=== PATIENT | male | born 1980 | race Two or more races ===

== ENCOUNTER → 2022-01-07 08:01 | Outpatient (REF) | payer MEDICAID, SELFPAY ==
--- NOTE | 2022-01-07 08:08 | ECG_ITS ---
Hook-up date: 2022-01-07 08:35:00 Duration: 47:59:00 Test Indications: PALPITATIONS Medications: [id number] QRS complexes * Ventricular ectopics which represent % of total QRS comp. 5 Supraventricular ectopics which represent <1 % of total QRS comp. * Paced QRS complexs which represent % of total QRS comp. VENTRICULAR ECTOPY * Isolated * Bigeminal Cycles * Couplets * Runs * Beats in Runs * Beats LONGEST at * BPM at :: -- * Beats FASTEST at * BPM at :: -- SUPRAVENTRICULAR ECTOPY 5 Isolated 0 Couplets 0 Runs 0 Beats in Runs * Beats LONGEST at * BPM at :: -- * Beats FASTEST at * BPM at :: -- HEART RATES 69 MIN at 07:00:17 2022-01-08 92 AVG 138 MAX at 00:56:28 2022-01-08 LONGEST RR 0.8800 secs at 07:00:19 2022-01-08 S-T LEVELS Channel 1 - 128 mm at 08:35:00 2022-01-07 - 128 mm at 08:35:00 2022-01-07 Channel 2 - 128 mm at 08:35:00 2022-01-07 - 128 mm at 08:35:00 2022-01-07 Channel 3 - 128 mm at 02:75:41 -- - 128 mm at 02:75:41 Basic rhythm Normal sinus rhythm No long pause or profound bradycardia No dangerous dysrhythm periods Patient did not report any symptoms in the diary Referred By: Sean Roman Overread By: ANJELICA VALDEZ MD
--- NOTE | 2022-01-07 08:08 | CA_ITS ---
Transthoracic Echocardiogram Patient (Last, First, Middle): Ganesh Scott, Gender: Male Date of : 1980 Age: 41 Procedure Date: 01/07/2022 Procedure Type: Transthoracic Echocardiogram Location: OP Height: 180.34 cm Weight: 108.86 kg BSA: 2.28 m2 Heart Rate: bpm BP: 116 / 84 mmHg Special Education Assistant: COLT Referring MD: Sean Roman MD Symptoms: R00.2 PAL;PITATIONS Study Quality: Fair ECG Rhythm: Sinus Conclusions: - The left ventricular systolic function is normal. The calculated ejection fraction is 62% by biplane method. - No obvious valvular pathology seen on this study. Findings Left Ventricle Normal left ventricular cavity size. The left ventricular systolic function is normal. The calculated ejection fraction is 62% by biplane method. There is no evidence of regional wall motion abnormalities. Diastolic function is normal for age. There is mild septal asymmetric hypertrophy. Right Ventricle Normal right ventricular cavity size and systolic function. Atria Both atria are normal in size. Aortic Valve There is a normal trileaflet aortic valve. There is no aortic valve stenosis. There is no aortic valve regurgitation. Mitral Valve The mitral valve appears normal. There is trace mitral valve regurgitation. There is no mitral valve stenosis. Pulmonic Valve The pulmonic valve was not well visualized. Tricuspid Valve Normal tricuspid valve structure. There is trace tricuspid valve regurgitation. The pulmonary artery systolic pressure is normal. Great Vessels The aortic annulus, sinuses of valsalva, asc aorta, and aortic arch are normal in size. Venous The inferior vena cava was not well visualized. Pericardium/Pleural There is no evidence of pericardial effusion. Prior Study Comparison No prior study available for comparison. Recommendations, Care & Conclusions No obvious valvular pathology seen on this study. Measurements 2D Linear Measurements IVSd: 1.09 0.6-0.9/0.6-1.0 cm LVIDd: 5.37 3.9-5.3/4.2-5.9 cm LVIDd Index: 2.36 2.4-3.2/2.2-3.1 cm/m2 LVIDs: 3.67 2.0-3.6 cm LVPWd: 0.93 0.7-1.1 cm LA Diam: 3.50 2.7-3.8/3.0-4.0 cm LAIDs Index: 1.54 1.5-2.3 cm/m2 LV Mass: 259.19 67-162/88-224 g LV Mass Index: 113.68 43-95/49-115 g/m2 LVOT Diam: 2.20 3.0+(-)1.3 cm 2D Systolic Function EF 4C: 61.00 >55% EF 2C: 62.90 >55% EF BiP: 61.70 >55% Mitral Valve MV Pk E: 0.75 MV PK A: 0.67 MV Decel Time: 189.00 E/A: 1.10 E'Lateral: 9.68 E'Medial: 7.83 E/E' Med: 9.50 E/E' Lat: 7.70 PHT: 55.00 MVA PHT: 4.00 Decel Forrest: 3.96 Aortic Valve AoV Pk Reji: 1.28 AoV Mn Reji: 0.96 AoV VTI: 0.24 AoV Pk Grad: 7.00 Aov Mn Grad: 4.00 TIFFANY Cont.VTI: 3.03 LVOT LVOT Pk Reji: 1.13 LVOT Mn Reji: 0.74 LVOT VTI: 0.19 LVOT Pk Grad: 5.00 LVOT Mn Grad: 3.00 LVOT Diam: 2.20 LVOT Area: 3.80 Diastolic Function MV Pk E: 0.75 MV Pk A: 0.67 E/A: 1.10 E'Medial: 7.83 E/E' Med: 9.50 E' Laterial: 9.68 E/E' Lat: 7.70 Right Ventricle TAPSE (mm): 20.30 TVS' Reji: 9.68 Tricuspid Valve TR Pk Reji: 1.67 TR Pk Grad: 11.00 Great Vessels Aorta Sinus of Valsalva: 3.27 2.0-3.[address] Ridge: 2.51 1.7-3.4 cm Ao Asc: 3.10 2.1-3.4 cm Ao Arch: 2.90 Updated in Other Vendor System with Status of Final Anthony Pires MD electronically signed on 01/07/2022 10:35:47 AM with status of Final
== END ==
LOC: HO.CARD 08:01
PROVIDERS: Visit Provider Internal Medicine
DX: R00.2 Palpitations (principal)
CPT/HCPCS: 93225; 93226; 93306

== ENCOUNTER → 2022-01-17 15:00 | Outpatient (REF) | payer MEDICAID, SELFPAY | LOC: HO.SL 15:00 | PROVIDERS: PCP Family Medicine; Visit Provider Family Medicine | DX: G47.33 Obstructive sleep apnea (adult) (pediatric) (principal) | CPT/HCPCS: 95806 ==

== ENCOUNTER 2023-04-23 12:59 | Emergency (ER) | payer MEDICAID, SELFPAY ==
--- NOTE | ~2023-04-23 | XR_ITS ---
EXAMINATION: XR LUMBOSACRAL SPINE CLINICAL INFORMATION: Midline tenderness. COMPARISON: None available. TECHNIQUE: Three views of the lumbosacral spine. FINDINGS: L5-S1 is transitional with partial sacralization of L5, left greater than right. Associated chronic appearing deformity of the L5 vertebral body is seen. The remainder the vertebral bodies are intact. The intervertebral disc spaces are unremarkable. The soft tissues are unremarkable. 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 No overt acute abnormality.
--- NOTE | 2023-04-23 13:25 | ED.BACK ---
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 Patient denies any recent trauma, injury, heavy lifting, or falls. Denies taking any medications at to treat his current symptoms. Patient denies any fevers, chills, abdominal pain, nausea, vomiting, diarrhea, urinary incontinence or bowel incontinence. Denies saddle anethesia. No hx of back pain in the past. No other complaints or concerns at this time. MD elicited complaint: back pain Radiation: none Relieving factors: none Associated symptoms: denies other symptoms Related Data Previous Rx's Medication Instructions Recorded cyclobenzaprine 10 mg tablet 10 mg PO TID PRN muscle spasm #14 04/23/23 tabs ibuprofen 600 mg tablet 600 mg PO Q6H PRN pain #30 tabs 04/23/23 prednisone 20 mg tablet 40 mg PO DAILY 5 days #10 tabs 04/23/23 Allergies Allergy/AdvReac Type Severity Reaction Status Date / Time Penicillins [PCN] Allergy Anaphylaxis Verified 04/23/23 13:26 Review of Systems Review of Systems: Yes all other systems are reviewed and are negative COUNTS INCLUDE 234 BEDS AT THE [facility] Social History Social History (System 08/31/21 @ 14:33 by Kia Case) Alcohol intake: never Smoked in Last 30 Days: No Use of substances other than those prescribed or required for medical reasons: No Advance Directives: No Advance Directives Information Provided: No Physical Exam Vital Signs: Vital Signs: Last Vital Signs Temp 98 F 04/23/23 13:28 Pulse 77 04/23/23 17:12 Resp 16 04/23/23 17:12 BP 134/81 04/23/23 17:12 Pulse Ox 96 04/23/23 17:12 O2 Del Method Room Air 04/23/23 17:12 BMI result Body Mass Index 35.8 Const: Other: General: Awake, alert, and oriented X3. No acute distress. HEENT: Normal inspection CVS: Normal heart rate and rhythm. Pulses normal. Respiratory: No respiratory distress Skin: Warm, dry, no rashes noted to exposed skin. Normal skin color. Normal skin turgor. Extremities: Normal to inspection. MSK: Mild TTP to the lumbar midline spine and lumbar paraspinous muscles with spasms noted. Negative straight leg raise. Patellar reflexes 2+biaterally. Neuro: Oriented X 3. No motor deficit. No sensory deficit. Course Course Course Narrative: RME - 42 yo Prydeinig speaking male on Sublocade presents to the ER for evaluation of nontraumatic lower back pain for the 1 week. No relief flexeril, motrin and pain patches OTC. No red flag symptoms of LBP. Plan: Has some midline lumbar tenderness so will get x-ray, treat pain, and reassess Medications Administered Discontinued Medications Generic Name Dose Route Start Last Admin Trade Name Freq PRN Reason Stop Dose Admin Ketorolac Tromethamine 30 mg 04/23/23 16:35 04/23/23 16:52 Ketorolac Tromethamine 30 Mg/Ml Vial IM 04/23/23 16:36 30 mg ONCE ONE Administration Medical Decision Making Medical Decision Making [facility] Narrative: 42 y/o martiniquais speaking male presenting to the ER with complaints of atraumatic back pain x 1 week. No back pain red flags on history or physical. Presentation not consistent with fracture (no trauma), cauda equina (no bowel or urinary incontinence/retention, no saddle anesthesia, no distal weakness), pyelonephritis (afebrile, no CVAT, no urinary symptoms). 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 Discussed results with patient and mother with supervisor assembly department. Advised to f/u with PCP regarding results. Will treat with steroids, muscle relaxants and NSAIDs. Given return precautions. Differential Diagnosis Differential Diagnoses: The differential diagnosis associated with the presentation includes MSK spasm, strain, sciatica, disc hernination, cauda equina syndrome unlikely. Radiology Impression Discussion of test interpretation with radiology: I have reviewed the radiologist's reading. Radiologist Impression: [address] [address] XRay Report Signed Patient: Ganesh Scott MR#: [id number] : 1980 Acct:[id number] Age/Sex: 42 / M ADM Date: 04/23/23 Loc: HO.ED Attending Dr: Ordering Physician: Joelle Daley Date of Service: 04/23/23 Procedure(s): XR lumbar spine 2-3V Accession Number(s): [id number] cc: Joelle Daley~ EXAMINATION: XR LUMBOSACRAL SPINE CLINICAL INFORMATION: Midline tenderness. COMPARISON: None available. TECHNIQUE: Three views of the lumbosacral spine. FINDINGS: L5-S1 is transitional with partial sacralization of L5, left greater than right. Associated chronic appearing deformity of the L5 vertebral body is seen. The remainder the vertebral bodies are intact. The intervertebral disc spaces are unremarkable. The soft tissues are unremarkable. 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 No overt acute abnormality. ? Dictated By: Linus Dahl MD Signed By: <Electronically signed by Linus Dahl MD in OV> Discharge Plan Discharge Clinical Impression: Back pain, Degenerative disc disease at L5-S1 level Patient Disposition: Home, Self-Care Instructions: Acute Low Back Pain (ED), Back Pain (ED) Additional Instructions: Your x-rays today reveal a chronic appearing deformity at the L5 vertebrae body. please take prescribed medication as directed. Please be aware muscle relaxants can cause drowsiness, do not drink alcohol or drive while taking this medication. Watch for any worsening symptoms including but urinary or bowel incontinence, or numbness and tingling anterior groin. Please return for re-evaluation if any of these occur. Follow-up with your primary care physician regarding this visit. Naomi radiograf?as de hoy revelan richelle deformidad cr?lilian en el cuerpo de la v?rtebra L5. por favor tome la medicaci?n prescrita seg?n las indicaciones. Tenga en cuenta que los relajantes musculares pueden causar somnolencia, no elmer alcohol ni conduzca mientras schuyler sahra medicamento. Est? atento a cualquier s?ntoma que empeore, incluso incontinencia urinaria o intestinal, o entumecimiento y hormigueo en la josie anterior. Regrese para richelle reevaluaci?n si ocurre alguno de estos. Martha un seguimiento con spear m?dico de atenci?n primaria con respecto a esta visita. Prescriptions: New prednisone 20 mg tablet 40 mg PO DAILY 5 Days Qty: 10 0RF cyclobenzaprine 10 mg tablet 10 mg PO TID PRN (Reason: muscle spasm) Qty: 14 0RF ibuprofen 600 mg tablet 600 mg PO Q6H PRN (Reason: pain) Qty: 30 0RF Interventions: ED Discharge Assessment Last Done: 04/23/23 17:14 Discharge Date/Time: 04/23/23 17:16 Print Language: Prydeinig
[2023-04-23 13:28] VITALS: BP 129/81; PULSE 97; RESP 16; TEMP 36.6; O2SAT 94; BMI 35.8
--- NOTE | 2023-04-23 16:35 | ED_ITS ---
HPI - Back Pain/Injury General Chief Complaint: Back Pain/Injury Stated Complaint: Back pain Time Seen by Provider: 04/23/23 15:49 Source: patient and RN notes reviewed Mode of arrival: ambulatory Limitations: no limitations Related Data Allergies Allergy/AdvReac Type Severity Reaction Status Date / Time Penicillins [PCN] Allergy Anaphylaxis Verified 04/23/23 13:26 [facility] Social History Social History (System 08/31/21 @ 14:33 by Kia Case) Advance Directives: No Advance Directives Information Provided: No Physical Exam Vital Signs: Vital Signs: Last Vital Signs Temp 98 F 04/23/23 13:28 Pulse 97 04/23/23 13:28 Resp 16 04/23/23 13:28 BP 129/81 04/23/23 13:28 Pulse Ox 94 04/23/23 13:28 O2 Del Method Room Air 04/23/23 13:28 BMI result Body Mass Index 35.8
[2023-04-23] MEDS: Ketorolac Tromethamine 30 MG/ML VIAL IM (16:52)
[2023-04-23 17:12] VITALS: BP 134/81; PULSE 77; RESP 16; O2SAT 96
== END 2023-04-23 17:16 | disposition home or self-care (01) ==
PROVIDERS: Emergency Provider Emergency Medicine
DX: M54.50 Low back pain, unspecified (principal); M51.37 Other intervertebral disc degeneration, lumbosacral region
CPT/HCPCS: 72100; 96372; 99284; J1885

== ENCOUNTER 2023-05-19 14:36 | Emergency (ER) | payer MEDICAID, SELFPAY ==
[2023-05-19 15:37] VITALS: BP 128/86; PULSE 108; RESP 18; TEMP 36.3; O2SAT 97; BMI 36.0
--- NOTE | 2023-05-19 15:40 | ED.GENADULT ---
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 Denies pain. No other concers. Denies fever, chills, urinary frequency or urgency, trauma/injury to UE/LE, numbness/tingling/weakness. Onset (ago): unknown Related Data Previous Rx's Medication Instructions Recorded cyclobenzaprine 10 mg tablet 10 mg PO TID PRN muscle spasm #14 04/23/23 tabs ibuprofen 600 mg tablet 600 mg PO Q6H PRN pain #30 tabs 04/23/23 prednisone 20 mg tablet 40 mg PO DAILY 5 days #10 tabs 04/23/23 Allergies Allergy/AdvReac Type Severity Reaction Status Date / Time Penicillins [PCN] Allergy Anaphylaxis Verified 05/19/23 15:36 Review of Systems Review of Systems: Constitutional: No Weight loss, No Fever, No Chills ENT/Mouth: No Ear Pain, No Nasal Congestion, No Sinus Pain, No Hoarseness, No sore throat, No Rhinorrhea, No Swallowing Difficulty Cardiovascular: No Chest Pain, No SOB Respiratory: No Cough, No Sputum, No Wheezing Gastrointestinal: No Nausea, No Vomiting, No Diarrhea, No Constipation, No Abdominal pain Genitourinary: No Dysuria, No Urinary Frequency, No Hematuria, No Urinary Incontinence/retention, No Urgency, No Flank Pain Musculoskeletal: No joint pain, No Myalgias, No Joint Swelling Skin: No Skin Lesions, No rash, + skin discoloration Neuro: No Weakness, No Numbness, No Paresthesias Yes all other systems are reviewed and are negative Constitutional: Constitutional: Reports as per [facility] Past Medical History Attestation statement: The following information was validated with the patient. Source: old records reviewed Social History Social History Alcohol intake: never Advance Directives: No Advance Directives Information Provided: Yes Physical Exam ED Vital Signs: Vital Signs - 24 hr 05/19/23 15:37 05/19/23 16:31 Temperature 97.3 F 98 F Pulse Rate 108 H 99 Respiratory Rate 18 19 Blood Pressure 128/86 128/84 Pulse Oximetry 97 97 Oxygen Delivery Method Room Air Room Air BMI result Body Mass Index 36.0 Const General: cooperative, healthy appearing and no acute distress Orientation/consciousness: patient oriented x3 Limitations: no limitations HENMT Head: Yes normal to inspection and Yes atraumatic Ears: hearing grossly normal bilaterally General nose exam: Normal external nose present Face and sinus: Yes normal facial exam Mouth: Normal oral and palatal mucosa present Throat: Yes uvula midline and No uvular edema Eyes General: appearance normal, both eyes and all related structures EOM: EOMs intact bilaterally Neck Neck: Yes normal visual inspection and Yes no meningeal signs Resp Effort & Inspection: normal respiratory effort, no respiratory distress and no stridor Auscultation: clear to auscultation bilaterally Cardio Rate: regular rate Heart sounds: S1 normal heart sound present and S2 normal heart sound present GI Inspection: Yes normal to inspection Palpation (GI): Soft to palpation, nontender, no guarding and not rigid Skin Other: + hyperpigmentation noted to MCPs of 1st and 2nd digits on left hand. + hyperpigmentation to bilateral medial ankles. No erythema or ecchymosis. No reproducible tenderness to MCPs of left hand. no erythema or scaling Rashes: no rashes Wounds: no wounds Neuro Other: Strength intact throughout. Neurovascular intact distally General: patient oriented x3, tone normal and no meningeal signs Cranial nerves: Yes CN's II-XII intact bilaterally Gait exam (Neuro): Normal gait present Extrem General: Yes normal to inspection Course Course Course Narrative: This is an RME: Additional HPI, ROS, PE not included below will be deferred to primary provider. This is a 42-year-old male, with a past medical history of hypertension and opioid use disorder on sublocade, presenting to the emergency department with bruising on bilateral hands and feet since today. Denies any or injury. No known history of the symptoms. Bruising noted dorsum bilateral hands. Plan: Basic labs -labs and coags WNL Results discussed with patient including worrisome signs and symptoms and strict return precautions, and when to return to the emergency department. They verbalized understanding and feel safe for discharge at this time. Medical Decision Making Medical Decision Making MDM Narrative: 42 year old male with no significant PMHx presents to the ED today with complaints of bruising/ discolorations to his bilateral knuckles and ankles x years. Vital signs stable. Patient nontoxic appearing, NAD, exam notable for hyperpigmentation overlying the MCPs of the 1st/2nd digits on the left hand and to the medial aspect of bilateral ankles, otherwise unremarkable. Clinical suspicion for chronic skin hyperpigmentation vs eczema vs psoriasis. Low suspicion for cellulitis. R/o chronic diabetes or ?adrenal insufficiency. Unlikely TEN/ SJS. Plan: labs ordered in triage Please refer to course for remaining clinical decision making, interpretation of labs/imaging results, and discussions with consultants and/or family members. Differential Diagnosis Differential Diagnoses: The differential diagnosis associated with the presentation includes As above Admission/Observation Consideration of admission/observation: Escalation of care including admission/observation considered Lab Data MDM Lab Attestation statement: I reviewed the patient's lab results. 05/19/23 16:00 05/19/23 16:00 Labs: Lab Results 05/19/23 05/19/23 05/19/23 Range/Units 16:00 16:00 16:00 WBC 10.7 (4.8-10.8) X10*3/uL RBC 5.23 (4.60-5.80) X10*6/uL Hgb 14.1 (14.0-18.0) g/dl Hct 43.8 (42.0-52.0) % MCV 83.7 (80.0-98.0) fL MCH 27.0 (27.0-33.0) pg MCHC 32.2 (31.0-36.0) g/dl RDW 13.3 (11.0-16.0) % Plt Count 331 (160-400) X10*3/uL MPV 9.7 (9.4-12.4) fL Immature Gran % (Auto) 0.5 H (0.0-0.4) % Neut % (Auto) 65.7 (45-73) % Lymph % (Auto) 25.7 (20-40) % Fajardo % (Auto) 5.4 (2-11) % Eos % (Auto) 2.3 (0-4) % Baso % (Auto) 0.4 (0-2) % Lymph # (Auto) 2.8 (1.2-4.9) X10*3/uL Fajardo # (Auto) 0.6 (0.1-1.2) X10*3/uL Eos # (Auto) 0.3 (0.0-0.4) X10*3/uL Baso # (Auto) 0.0 (0.0-0.2) X10*3/uL Abs Immat Gran (auto) 0.05 H (0.00-0.03) X10*3/uL Absolute Neuts (auto) 7.0 (2.0-8.3) x10*3/uL Absolute Nucleated RBC 0.000 (0.0-0.012) X10*3/uL Nucleated RBC % (auto) 0.0 (0.0-0.2) /100WBC PT 12.6 (11.1-13.3) SEC INR 1.0 (0.9-1.1) APTT 35.3 (26.0-36.4) SEC Sodium 138 (135-145) mmol/L Potassium 3.7 (3.3-5.1) mmol/L Chloride 106 (96-108) mmol/L Carbon Dioxide 23 (22-29) mmol/L Anion Gap 13 (12-20) BUN 11 (9-16) mg/dL Creatinine 0.90 (0.5-1.4) mg/dL Estim Creat Clear Calc 139.2 Estimated GFR > 60 Random Glucose 106 (60-115) mg/dL Calcium 10.6 H (8.4-10.2) mg/dL External Record Review External record reviewed: Inpatient record, Office record, Outpatient record, Prior outpatient labs, Prior outpatient radiology, Primary care record and Outside ED record Tests considered The following testing was considered but not selected: As above Discharge Plan Discharge Clinical Impression: Hyperpigmentation Patient Disposition: Home, Self-Care Additional Instructions: Your blood work is reassuring Please follow-up with dermatology Please follow-up with your doctor If symptoms persist or worsen return to the ED Browne an?lisis de dick es tranquilizador. Por favor, seguimiento con dermatolog?a. Por favor, ronnie un seguimiento con browne m?dico. Si los s?ntomas persisten o empeoran, regrese al servicio de urgencias. Prescriptions: No Action prednisone 20 mg tablet 40 mg PO DAILY 5 Days Qty: 10 0RF cyclobenzaprine 10 mg tablet 10 mg PO TID PRN (Reason: muscle spasm) Qty: 14 0RF ibuprofen 600 mg tablet 600 mg PO Q6H PRN (Reason: pain) Qty: 30 0RF Referrals: Tisha Villasenor PA [Physician Radial Drill Press Set Up Operator] - Jose Richardson MD [Physician] - Blossom Phan NP [Nurse Practitioner] - Interventions: ED Discharge Assessment Last Done: 05/19/23 17:34 Discharge Date/Time: 05/19/23 17:39 Print Language: Swedish
[2023-05-19 16:03] LABS: MANUAL DIFF FLAG NO
[2023-05-19 16:05] LABS: Basophils Percent Auto 0.4 % (0-2); Eosinophils Absolute Auto 0.3 X10*3/uL (0.0-0.4); Eosinophils Percent Auto 2.3 % (0-4); Hematocrit 43.8 % (42.0-52.0); Hemoglobin 14.1 g/dl (14.0-18.0); Imm Gran Abs Auto 0.05 X10*3/uL (0.00-0.03); Imm Gran Pct Auto 0.5 % (0.0-0.4); Lymphocytes Absolute Auto 2.8 X10*3/uL (1.2-4.9); Lymphocytes Percent Auto 25.7 % (20-40); Mean Corpuscular HGB Conc 32.2 g/dl (31.0-36.0); Mean Corpuscular Volume 83.7 fL (80.0-98.0); Mean Platelet Volume 9.7 fL (9.4-12.4); Monocytes Absolute Auto 0.6 X10*3/uL (0.1-1.2); Monocytes Percent Auto 5.4 % (2-11); Neutrophils Percent Auto 65.7 % (45-73); Platelet Count 331 X10*3/uL (160-400); Red Blood Count 5.23 X10*6/uL (4.60-5.80); Red Cell Distribution Width 13.3 % (11.0-16.0); White Blood Count 10.7 X10*3/uL (4.8-10.8)
[2023-05-19 16:12] LABS: Prothrombin Time 12.6 SEC (11.1-13.3)
[2023-05-19 16:14] LABS: Partial Thromboplastin Time 35.3 SEC (26.0-36.4)
[2023-05-19 16:20] LABS: Anion Gap 13 (12-20); Blood Urea Nitrogen 11 mg/dL (9-16); Calcium 10.6 mg/dL (8.4-10.2); Carbon Dioxide 23 mmol/L (22-29); Chloride 106 mmol/L (96-108); Creatinine Clr Calc Pharmacy 139.2; Estimated Glomerular Filt Rate > 60; Glucose Random 106 mg/dL (60-115); Potassium 3.7 mmol/L (3.3-5.1); Sodium 138 mmol/L (135-145)
[2023-05-19 16:31] VITALS: BP 128/84; PULSE 99; RESP 19; TEMP 36.6; O2SAT 97
== END 2023-05-19 17:39 | disposition home or self-care (01) ==
PROVIDERS: Physician Assistant Medical; Emergency Provider Internal Medicine
DX: L81.9 Disorder of pigmentation, unspecified (principal); Z79.899 Other long term (current) drug therapy
CPT/HCPCS: 36415; 80048; 85025; 85610; 85730; 99282; 99283

== ENCOUNTER 2023-05-31 10:03 | Emergency (ER) | payer MEDICAID, SELFPAY ==
[2023-05-31 10:22] VITALS: BP 144/89; PULSE 128; RESP 16; TEMP 36.7; O2SAT 95; BMI 36.7
--- NOTE | 2023-05-31 12:18 | ED.GENADULT ---
HPI - General Adult General Chief complaint: Skin/Abscess/Foreign Body Stated complaint: cyst in back Time Seen by Provider: 05/31/23 10:32 Source: patient and landing scaler Mode of arrival: ambulatory Limitations: language barrier History of Present Illness HPI narrative: Patient is a 42-year-old Sinhala-speaking male presenting to the emergency department with pain and swelling to the bassem cleft for 2 weeks. Patient reports that he has had some purulent drainage. He reports noting increased swelling over the past several days. Denies fevers or other systemic symptoms. MD complaint: pilonidal cyst Onset (ago): week(s) Location: buttocks Radiation: non-radiation Severity: severe Quality: aching Pain Consistency: constant Relieving factors: rest Exacerbating factors: other (direct pressure) Associated symptoms: denies other symptoms Treatments prior to arrival: none Related Data Previous Rx's Medication Instructions Recorded cyclobenzaprine 10 mg tablet 10 mg PO TID PRN muscle spasm #14 04/23/23 tabs ibuprofen 600 mg tablet 600 mg PO Q6H PRN pain #30 tabs 04/23/23 prednisone 20 mg tablet 40 mg PO DAILY 5 days #10 tabs 04/23/23 doxycycline hyclate 100 mg tablet 100 mg PO BID #14 tabs 05/31/23 Allergies Allergy/AdvReac Type Severity Reaction Status Date / Time Penicillins [PCN] Allergy Anaphylaxis Verified 05/19/23 15:36 Review of Systems Review of Systems: As per HPI. Yes all other systems are reviewed and are negative Constitutional: Constitutional: Reports as per HPI [facility] Social History Social History Alcohol intake: never Advance Directives: No Advance Directives Information Provided: No Physical Exam ED Vital Signs: Vital Signs - 24 hr 05/31/23 10:22 Temperature 98.1 F Pulse Rate 128 H Respiratory Rate 16 Blood Pressure 144/89 H Pulse Oximetry 95 Oxygen Delivery Method Room Air BMI result Body Mass Index 36.7 Vital signs have been reviewed and appear to be correct. Blood pressure elevated. Heart rate tachycardic. Respiratory rate normal. Temperature normal. Oxygen saturation normal. Const General: cooperative, healthy appearing and no acute distress Orientation/consciousness: oriented to person, oriented to place, oriented to time and patient oriented x3 Limitations: no limitations HENMT Head: Yes normocephalic and Yes atraumatic Ears: external ears normal General nose exam: Normal external nose present Face and sinus: Yes face symmetric Mouth: oropharynx normal and moist mucous membranes Throat: Yes uvula midline Eyes Pupils: Equal, round and reactive pupils present Neck Neck: Yes normal visual inspection and Yes supple Resp Effort & Inspection: normal respiratory effort and able to speak in complete sentences Auscultation: clear to auscultation bilaterally Cardio Rate: regular rate Rhythm: regular rhythm Heart sounds: S1 normal heart sound present and S2 normal heart sound present GI Palpation (GI): Soft to palpation and nontender Auscultation: normoactive bowel sounds General: Yes no CVA tenderness Back/Spine/Pelvis Back: no CVA tenderness Skin Other: Exam chaperoned by ANGELICA Matson tech. Erythema, warmth, tenderness and induration noted to bassem cleft, no fluctuance or drainage. General skin exam: elasticity normal and turgor normal Full body images: 1. erythema, tenderness, induration, no fluctuance Neuro General: oriented to person, oriented to place, oriented to time, patient oriented x3, moves all extremities, no focal motor deficits and CN's II-XI intact bilaterally Cranial nerves: Yes Equal, round and reactive pupils present Cognition (Neuro): normal cognition Extrem General: Yes full ROM, Yes no pedal edema and Yes no calf tenderness Psych Mental Status: mental status grossly normal Affect: normal affect Thought process: Normal thought process present Medical Decision Making Medical Decision Making MDM Narrative: Patient is a 42-year-old Sinhala-speaking male presenting to the emergency department with pain and swelling to the bassem cleft for 2 weeks. On exam patient is awake, A+Ox3, BP mildly elevated, tachycardic, VS otherwise WNL, afebrile, normal neurological exam without focal deficits, erythema, warmth, tenderness and induration noted to bassem cleft, no fluctuance. Patient states that he is always tachycardic, review of EMR reveals HRs in the 90's on prior visits, feel likely secondary to pain as patient is afebrile and nontoxic appearing. Given reported symptoms and physical exam findings, initial differential includes pilonidal cyst, cellulitis, folliculitis. Discussed with patient that incision and drainage is not indicated this time. Will prescribe course of doxycycline and advised patient to perform Sitz baths several times daily until symptoms resolve. Return precautions discussed at bedside. Instructed patient follow-up with primary care provider. Patient verbalized understanding of and agreement with plan. Differential Diagnosis Differential Diagnoses: The differential diagnosis associated with the presentation includes As per MDM. External Record Review External record reviewed: Inpatient record, Office record and Outpatient record Prescription Management I considered prescription management with: Antibiotic (Doxycycline) Discharge Plan Discharge Clinical Impression: Pilonidal cyst Patient Disposition: Home, Self-Care Instructions: Pilonidal Cyst (ED) Additional Instructions: Le est?n recetando antibi?ticos; complete el tratamiento completo seg?n lo prescrito. Debe neville ba?os tibios con janeen de [place] varias veces al d?a para ayudar a drenar el quiste pilonidal. Regrese al departamento de emergencias si el dolor empeora, hinchaz?n, secreci?n amarilla espesa, fiebre de 100.4 F o m?s, o cualquier otro s?ntoma preocupante. Martha un seguimiento con spear proveedor de atenci?n primaria esta semana. Prescriptions: New doxycycline hyclate 100 mg tablet 100 mg PO BID Qty: 14 0RF No Action prednisone 20 mg tablet 40 mg PO DAILY 5 Days Qty: 10 0RF cyclobenzaprine 10 mg tablet 10 mg PO TID PRN (Reason: muscle spasm) Qty: 14 0RF ibuprofen 600 mg tablet 600 mg PO Q6H PRN (Reason: pain) Qty: 30 0RF Interventions: ED Discharge Assessment Last Done: 05/31/23 12:26 Print Language: Sinhala
[2023-05-31 12:25] VITALS: PULSE 106; O2SAT 98
== END 2023-05-31 12:26 | disposition home or self-care (01) ==
PROVIDERS: Emergency Provider Emergency Medicine
DX: L05.91 Pilonidal cyst without abscess (principal); R00.0 Tachycardia, unspecified
CPT/HCPCS: 99283

== ENCOUNTER 2023-09-19 16:17 | Outpatient (REF) | payer MEDICAID, SELFPAY ==
[2023-09-19 18:42] LABS: TSH reflex Free T4 2.72 uIU/mL (0.32-4.0)
== END 2023-09-19 16:18 | disposition home or self-care (01) ==
LOC: HO.CHCLDS 16:17
PROVIDERS: Visit Provider Internal Medicine
DX: R79.89 Other specified abnormal findings of blood chemistry (principal)
CPT/HCPCS: 36415; 84443

== ENCOUNTER 2024-01-05 14:50 | Outpatient (REF) | payer MEDICAID, SELFPAY ==
[2024-01-05 17:30] LABS: Basophils Percent Auto 0.3 % (0-2); Eosinophils Absolute Auto 0.2 X10*3/uL (0.0-0.4); Eosinophils Percent Auto 1.6 % (0-4); Hematocrit 40.8 % (42.0-52.0); Hemoglobin 13.5 g/dl (14.0-18.0); Imm Gran Abs Auto 0.08 X10*3/uL (0.00-0.03); Imm Gran Pct Auto 0.7 % (0.0-0.4); Lymphocytes Absolute Auto 3.1 X10*3/uL (1.2-4.9); Lymphocytes Percent Auto 25.8 % (20-40); MANUAL DIFF FLAG NO; Mean Corpuscular HGB Conc 33.1 g/dl (31.0-36.0); Mean Corpuscular Hemoglobin 27.4 pg (27.0-33.0); Mean Corpuscular Volume 82.9 fL (80.0-98.0); Mean Platelet Volume 10.7 fL (9.4-12.4); Monocytes Absolute Auto 0.6 X10*3/uL (0.1-1.2); Monocytes Percent Auto 5.1 % (2-11); Neutrophils Absolute Auto 7.9 x10*3/uL (2.0-8.3); Neutrophils Percent Auto 66.5 % (45-73); Platelet Count 299 X10*3/uL (160-400); Red Blood Count 4.92 X10*6/uL (4.60-5.80); Red Cell Distribution Width 13.6 % (11.0-16.0); White Blood Count 11.9 X10*3/uL (4.8-10.8)
[2024-01-05 17:42] LABS: Estimated Average Glucose 128 mg/dL; Hemoglobin A1c % 6.1 % (<6.0)
[2024-01-05 17:48] LABS: Alanine Aminotransferase 51 U/L (0-40); Albumin Level 4.3 g/dL (3.5-5.0); Alkaline Phosphatase 126 U/L (39-117); Anion Gap 11 (12-20); Aspartate Amino Transferase 35 U/L (5-37); Bilirubin Total 0.3 mg/dL (0.0-1.0); Blood Urea Nitrogen 9 mg/dL (9-16); Calcium 9.6 mg/dL (8.4-10.2); Carbon Dioxide 29 mmol/L (22-29); Chloride 102 mmol/L (96-108); Estimated Glomerular Filt Rate > 60; Glucose Random 85 mg/dL (60-115); Potassium 3.5 mmol/L (3.3-5.1); Sodium 138 mmol/L (135-145); Total Protein 8.4 g/dL (6.5-8.0)
[2024-01-05 18:05] LABS: TSH reflex Free T4 3.27 uIU/mL (0.32-4.0)
== END 2024-01-05 14:51 | disposition home or self-care (01) ==
LOC: HO.CHCLDS 14:50
PROVIDERS: Visit Provider Internal Medicine
DX: Z00.00 Encounter for general adult medical examination without abnormal findings (principal); D64.9 Anemia, unspecified; R73.9 Hyperglycemia, unspecified; I10 Essential (primary) hypertension
CPT/HCPCS: 36415; 80053; 83036; 84443; 85025

== ENCOUNTER 2024-02-02 15:37 | Outpatient (REF) | payer MEDICAID, SELFPAY ==
[2024-02-04 18:33] LABS: HCV Log PCR <1.18 NOT DETECTED Log IU/mL (NOT DETECTED); HepC Viral Load <15 NOT DETECTED IU/mL (NOT DETECTED)
== END 2024-02-02 15:38 | disposition home or self-care (01) ==
LOC: HO.CHCLDS 15:37
PROVIDERS: Visit Provider Internal Medicine
DX: B18.2 Chronic viral hepatitis C (principal)
CPT/HCPCS: 36415; 87522

== ENCOUNTER 2024-10-28 15:00 | Outpatient (REF) | payer MEDICAID, SELFPAY ==
[2024-10-28 17:51] LABS: Appearance Urine Clear; Color Urine Yellow; Glucose Urine UA Negative (Negative); Leukocyte Esterase Urine Negative (Negative); Nitrite Urine Negative (Negative); PH 6.5 (5.0-9.0); Specific Gravity - Urine 1.015 (1.005-1.025); Urine Blood Negative (Negative); Urine Ketones Negative (Negative); Urine Protein Negative (Neg-Trace)
--- OUTSIDE RECORDS SUMMARY | 2024-10-28 18:54 | XMS_ITS | Encounter Summary ---
Author Organization [facility] Address [address] [place] [address] [place] [address] Care Team Providers Care Transportation Design Engineer Name Role Phone Sean Roman MD Primary Care Provider [phone] Encounter Details Date Type Department Care Team (Late st Contact Info) Description 09/04/2023 Orders Only [facility] MED & PEDS [address] [place] [address] Sean Roman MD [address] [place] [address] Social History Tobacco Use Types Packs/Day Years Used Date Smoking Tobacco: Former Cigarettes Smokeless Tobacco: Never Comments:Vape 10 times a day Sex and Gender Information Value Date Recorded Sex Assigned at Male 07/29/2022 10:35 AM EDT Legal Sex Male 10:35 AM EDT Gender Identity Male 07/29/2022 10:35 AM EDT Sexual Orientation Choose not to disclose 2021 10:35 AM EDT documented as of this encounter Plan of Treatment Upcoming Encounters Date Type Department Care Team (Late st Contact Info) Description 11/18/2024 11:00 AM EST Clinical Support [facility] MEDICINE [address] [place] [address] Jeremy Asif, MILI [address] [place] [address] 12/08/2024 2:45 PM EDT Office Visit [facility] MED & PEDS [address] [place] [address] Sean Roman MD [address] [place] [address] documented as of this encounter Visit Diagnoses Not on filedocumented in this encounter Care Teams Transportation Design Engineer Relationship Specialty Start Date End Date Sean Roman MD [address] [place] [address] PCP - General Internal Medicine 02/10/19 Luna Palomo Sock DrierPiece Dyer 12/23/23 Luna palomo Sock DrierPiece Dyer 05/05/24 documented as of this encounter
--- OUTSIDE RECORDS SUMMARY | 2024-10-28 18:54 | XMS_ITS | Encounter Summary ---
Author Organization [facility] Address [address] [place] [address] Care Team Providers Care Medical Microbiologist Name Role Phone Sean Roman MD Primary Care Provider [phone] Reason for Visit * Reason Comments OBAT Encounter Details Date Type Department Care Team (Latest Contact Info) Description 10/21/2024 1:00 PM EST Office Visit [facility] MEDICINE [address] [place], [place] [phone] Lubna Torres MD [address] [place] [address] Uncomplicated opioid dependence (CMS/HCC) (Primary Dx) Social History Tobacco Use Types Packs/Day Years Used Date Smoking Tobacco: Former Cigarettes Smokeless Tobacco: Never Comments:Vape 10 times a day Depression Answer Date Recorded Patient Health Questionnaire-9 Score 11 12/04/2023 Patient Health Questionnaire-9 Score 11 12/04/2023 Last PHQ-9: Questionnaire Data Not on file 0 12/04/2023 Housing Stability Answer Date Recorded What is your housing situation today? I have denise zamudio 11/26/[address] you li ve. Do you have problems with any of the following? None of the above 11/26/2023 Food Insecurity Answer Date Recorded Within the past 12 months, y ou worried that your food would run out before you got money to buy more: Never True 11/26/2023 Within the past 12 months,th e food you bought just didn't last and you didn't have enough money to get more: Never True Transportation Answer Date Recorded In the past 12 months, has l ack of transportation kept you from medical appts, meetings, work or from getting things needed for daily living? No 11/26/2023 Utilities Answer Date Recorded In the past 12 months, has t he electric, gas, oil or water company threatened to shut off services in your home? No 11/26/2023 Depression Answer Date Recorded Patient Health Questionnaire-2 Score 4 12/04/2023 Sex and Gender Information Value Date Recorded Sex Assigned at Male 07/29/2022 10:35 AM EDT Legal Sex Male 10:35 AM EDT Gender Identity Male 07/29/2022 10:35 AM EDT Sexual Orientation Choose not to disclose 2021 10:35 AM EDT documented as of this encounter Progress Notes * Lubna Torres MD - 10/21/2024 1:00 PM EST Patient here today for Opioid Dependence RV. Patient is on Sublocade 100mg injections on a 4 week schedule. Pt has been in the program for 5 years & 10 months. Induction date: 12/16/18. Patient actively engaged in services at [facility]. FOOD CHEMIST reviewed by provider. LFTs done 01/05/24. Last PCP appt03/08/24. Smoking status 06/2023: vaping tobacco, pre-contemplation LAST VISIT 09/23/24 Ganesh continues to do well on Sublocade. Had a nice holiday yesterday. No concerns. Sublocade reviewed. Pt verbalized understanding. Sublocade 100 mg given SQ RLQ abdomen. Pt tolerated injection, no adverse reactions noted. Advised pt to call RN with any questions or concerns. TODAY-10/21/24 POS:BUP ONLY Subjective Patient ID: Ganesh Chapin is a 43 y.o. male who presents for OBAT. Ganesh is being seen for OBAT services. He is maintaining abstinence on Sublocade with no cravings or med side effects. No concerns today. Seeing counselor and psychiatrist on a regular basis. Review of Systems Psychiatric/Behavioral: Negative for dysphoric mood. The patient is not nervous/anxious. Objective Physical Exam Constitutional: Appearance: Normal appearance. He is well-developed. Skin: General: Skin is warm and dry. Neurological: General: No focal deficit present. Mental Status: He is alert and oriented to person, place, and time. Mental status is at baseline. Psychiatric: Mood and Affect: Mood normal. Behavior: Behavior normal. Assessment/Plan Diagnoses and all orders for this visit: Uncomplicated opioid dependence (CMS/HCC) Counseling provided RE: importance of multiple sources of support for achieving and maintaining recovery. Counseling RE: harm reduction measures, ie, not using alone, the use of clean needles/equipment, Narcan. Discussed strategies to use when confronted with situations that trigger use. Continue monthly visits. - POCT JOON-14 Urine Drug Screen - buprenorphine ER (Sublocade) 100 mg/0.5mL injection 1 each This information has been disclosed to you from records protected by federal confidentiality rules (42 CFR Part 2). The federal rules prohibit you from making any further disclosure of information inthis record that identifies a patient as having or having had a substance use disorder either directly, by reference to publicly available information, or through verification of such identification by another person unless further disclosure is expressly permitted by the written consent of the individual whose information is being disclosed or as otherwise permitted by (see2.3.1). The federal rules restrict any use of the information to investigate or prosecute with regard to a crime any patient with a substance use disorder, except as provided at 2.12??(5) and 2.65. * Sallie Lara RN - 10/21/2024 1:00 PM EST Sublocade reviewed. Pt verbalized understanding. Sublocade 100 mg given SQ left upper abdomen. Pt tolerated injection, no adverse reactions noted. Advised pt to call RN with any questions or concerns. documented in this encounter Plan of Treatment Upcoming Encounters Date Type Department Care Team (Late st Contact Info) Description 11/18/2024 11:00 AM EST Clinical Support [facility] MEDICINE [address] [place] [address] Jeremy Asif RN [address] [place] [address] 12/08/2024 2:45 PM EDT Office Visit [facility] MED & PEDS [address] [place] [address] Sean Roman MD [address] [place] [address] documented as of this encounter Procedures Procedure Name Priority Date/Time Associated Diagnosis Comments POCT JOON-14 URINE DRUG SCREEN Routine 10/21/2024 1:15 PM EST Uncomplicated opioid dependence (CMS/HCC) documented in this encounter Results * POCT JOON-14 Urine Drug Screen (10/21/2024 1:15 PM EST) THC Negative Cocaine Screen, Urine Negative Opiate Screen, Urine Negative Methamphetamine Screen Urine Negative Amphetamine Screen, Urine Negative Benzodiazepines Screen, Urine Negative Barbiturate Screen, Urine Negative Methadone Screen, Urine Negative Buprenophine Screen, Urine Positive TCA, Urine Negative MDMA Urine Negative ng/mL Oxycodone Screen, Urine Negative Phencyclidine (PCP), Urine Negative Propoxyphene, Urine Negative Fentanyl, Urine Negative Urine Urine specimen obtained by clean catch procedure / Unknown 10/21/2024 1:15 PM EST Lubna Torres MD POINT OF CARE TEST ENTER/ANNIKA T ORDERABLES Final Result documented in this encounter Visit Diagnoses Diagnosis Uncomplicated opioid dependence (CMS/HCC)- Primary documented in this encounter Administered Medications Inactive Administered Medications - up to 3 most recent administrations Medication Order MAR Action Action Date Dose Rate Site buprenorphine ER (Sublocade) 100 mg/0.5mL injection 1 each 1 each, Subcutaneous, Over 1 month, First dose on Shannon 10/21/24 at 1345, For 1 dose, For abdominal subcutaneous injection only Remove Sublocade from the fridge at least 15 minutes prior to administration. Discard if left at room temperature for longer than 7 days. Do not open the foil pouch until patient arrives. See package insert for specific administration instructions. Do not administer intravenously or intramuscularly.Indication s:Uncomplicated opioid dependence (CMS/HCC) Given 10/21/2024 1:45 PM EST 1 each Left Upper Abdomen documented in this encounter Additional Health Concerns Assessment Noted Time PHQ-9 Depression Total Score: 11 12/03/ 024 2:03 PM EST documented as of this encounter Care Teams Medical Microbiologist Relationship Specialty Start Date End Date Sean Roman MD [address] [place] [address] PCP - General Internal Medicine 02/10/19 Luna Palomo Boat RiggerChief Librarian Work With Blind 12/23/23 Luna palomo Boat RiggerChief Librarian Work With Blind 05/05/24 documented as of this encounter
--- OUTSIDE RECORDS SUMMARY | 2024-10-28 18:54 | XMS_ITS | Encounter Summary ---
Author Organization [employer] Address [address] [place] [address] Care Team Providers Care Door Builder Name Role Phone Sean Roman MD Primary Care Provider Reason for Visit * Reason Onset Date Comments PT1 06/16/2023 Encounter Details Date Type Department Care Team ([facility] st Contact Info) Description 06/16/2023 Telephone [facility] MEDICINE [address] [place] [address] Sean Roman MD [address] [place], [place] [id number] PT1 Social History Tobacco Use Types Packs/Day Years [...] AM EDT documented as of this encounter Miscellaneous Notes * Telephone Encounter - Yaz Dowd - 06/16/2023 3:45 PM EDT PT-1 submitted for patient. They will receive a letter of approval or denial in the mail. * Telephone Encounter - Carla Sascha - 06/16/2023 1:34 PM EDT Tc from pt requesting a PT1 Date: 06/26 Time: 10:15 am address: [address] [place] [address] specialty: [facility] # visits: n/a petroleum plant operator: no Wheelchair: no documented in this encounter Plan of Treatment Upcoming Encounters Date Type Department Care Team (Late st Contact Info) Description 11/18/2024 11:00 AM EST Clinical Support [facility] MEDICINE [address] [place] [address] Jeremy Asif, RN [address] [place] [address] 12/08/2024 2:45 PM EDT Office Visit [facility] MED & PEDS [address] [place] [address] Sean Roman MD [address] [place] [address] documented as of this encounter Visit Diagnoses Not on filedocumented in this encounter Care Teams Door Builder Relationship Specialty Start Date End Date Sean Roman MD [address] [place] [address] PCP - General Internal Medicine 02/10/19 Luna Palomo Health Sciences Program CoordinatorInfant Room Teacher 12/23/23 Luna palomo Health Sciences Program CoordinatorInfant Room Teacher 05/05/24 documented as of this encounter
--- OUTSIDE RECORDS SUMMARY | 2024-10-28 18:54 | XMS_ITS | Encounter Summary ---
Author Organization [employer] Address [address] [facility] [address] [address] [place] [address] Care Team Providers Care Long Haul Truck Driver Name Role Phone Sean Roman MD Primary Care Provider Encounter Details Date Type Department Care Team ([facility] st Contact Info) Description 10/27/2024 Telephone [facility] MED & PEDS [address] [place] [address] Sean Roman MD [address] [place] [address] Social History Tobacco Use Types Packs/Day Years [...] encounter Miscellaneous Notes * Telephone Encounter - Manuel Yost MA - 10/27/2024 11:45 AM EST Chart Prep Labs: not applicable Images: done Vaccines due: yes Referrals: complete Screenings: Overdue care gaps: Sbirt, SDOH, PHQ-9 documented in this encounter Plan of Treatment Upcoming Encounters Date Type Department Care Team (Late st Contact Info) Description 11/18/2024 11:00 AM EST Clinical Support [facility] MEDICINE [address] [place] [address] Jeremy Asif, MILI [address] [place] [address] 12/08/2024 2:45 PM EDT Office Visit [facility] MED & PEDS [address] [place] [address] Sean Roman MD [address] [place] [address] documented as of this encounter Visit Diagnoses Not on filedocumented in this encounter Additional Health Concerns Assessment Noted Time PHQ-9 Depression Total Score: 11 024 2:03 PM EST documented as of this encounter Care Teams Long Haul Truck Driver Relationship Specialty Start Date End Date Sean Roman MD [address] [place] [address] PCP - General Internal Medicine 02/10/19 Luna Palomo Cuff Setter OverlockAnimal Care Technician 12/23/23 Luna palomo Cuff Setter OverlockAnimal Care Technician 05/05/24 documented as of this encounter
--- OUTSIDE RECORDS SUMMARY | 2024-10-28 18:54 | XMS_ITS | Encounter Summary ---
Author Organization [employer] Address [address] [place] [address] 7 [place] [address] Care Team Providers Care Mechatronics Technician Name Role Phone Sean Roman MD Primary Care Provider [phone] Reason for Visit * Reason Comments Hypertension Diabetes Back Pain STI Screening Encounter Details Date Type Department Care Team ([facility] st Contact Info) Description 10/28/2024 2:30 PM EST Office Visit [facility] [address] [place] [address] Sean Roman MD [address] [place] [address] Type 2 diabetes mellitus with hyperglycemia, without long-term current use of insulin ([facility]) (Primary Dx); Primary hypertension; Acute midline low back pain without sciatica; Screen for STD (sexually transmitted disease) Social History Tobacco Use Types Packs/Day Years Used Date Smoking Tobacco: Former Cigarettes Smokeless Tobacco: Never Comments:Vape 10 times a day Depression Answer Date Recorded Patient Health Questionnaire-9 Score 11 12/04/2023 Patient Health Questionnaire-9 Score 11 12/04/2023 Last PHQ-9: Questionnaire Data Not on file 0 12/04/2023 Housing Stability Answer Date Recorded What is your housing situation today? I have denise lizz 11/26/[address] you li [...] AM EDT documented as of this encounter Last Filed Vital Signs Vital Sign Reading Time Taken Comments Blood Pressure 127/82 10/28/2024 2:04 PM EST Pulse 70 10/28/2024 2:04 PM EST Temperature 36.7 ??C (98 ??F) 10/28/2024 2:04 PM EST Respiratory Rate 20 10/28/2024 2:04 PM EST Oxygen Saturation 95% 10/28/2024 2:04 PM EST Inhaled Oxygen Concentration - - Weight 118 kg (260 lb) 10/28/2024 2:04 PM EST Height 172.7 cm (5' 8 ) 10/28/2024 2:04 PM EST Body Mass Index 39.53 10/28/2024 2:04 PM EST documented in this encounter Progress Notes * Sean Roman MD - 10/28/2024 2:30 PM EST Subjective Patient ID: Ganesh Chapin is a 43 y.o. male who presents for Hypertension, Diabetes, Back Pain, and STI Screening. Hypertension This is a chronic problem. The problem is controlled. Pertinent negatives include no anxiety, blurred vision, chest pain, headaches, malaise/fatigue, neck pain, orthopnea, palpitations, peripheral edema, PND, shortness of breath or sweats. Diabetes Pertinent negatives for hypoglycemia include no headaches or sweats. Pertinent negatives for diabetes include no blurred vision and no chest pain. Back Pain Pertinent negatives include no abdominal pain, chest pain or headaches. Patient admits dietary indiscretion. Reports that his mother was here and he was not compliant witha low-carb diet. History of high blood pressure he is compliant to his medication. No reported side effect. No headache or blurry vision Had 3 sexual partners within the last 3 months has not been using safe sexual practices during his relationships. Also complaining of new onset of midline low back pain that started about 2 days ago. No associatedfever/saddle anesthesia/urinary incontinence/urinary retention. No history of fall or trauma. Patient Active Problem List Diagnosis Tobacco use Chronic hepatitis C ([facility]) Hypertensive disorder Obstructive sleep apnea syndrome Opioid dependence ([facility]) Chronic bilateral low back pain without sciatica Hypertriglyceridemia Obesity Class 2 severe obesity due to excess calories with serious comorbidity and body mass index (BMI) of38.0 to 38.9 in adult ([facility]) Type 2 diabetes mellitus ([facility]) Current Outpatient Medications on File Prior to Visit Medication Sig Dispense Refill albuterol 108 (90 Base) MCG/ACT inhaler Inhale 2 puffs every 4 (four) hours if needed for wheezing.18 g 0 amLODIPine (Norvasc) 5 MG tablet TAKE ONE TABLET DAILY 90 tablet 1 atenolol (Tenormin) 25 MG tablet TAKE ONE TABLET BY MOUTH EVERY MORNING 30 tablet 11 buprenorphine ER (Sublocade) 100 mg/0.5mL injection Inject 0.5 mL (1 each) under the skin every month to absorb continually. Inject 0.5 mL under the skin every month to absorb continually. 0.5 mL 5 cyclobenzaprine (Flexeril) 10 MG tablet Take 10 mg by mouth if needed in the morning, at noon, and at bedtime. dextran 70-hypromellose (artificial tears) 0.1-0.3 % ophthalmic solution Administer 1 drop into theleft eye every 2 (two) hours. diclofenac (Cataflam) 50 MG tablet Take 1 tablet (50 mg) by mouth 3 times daily. 90 tablet 0 FLUoxetine (PROzac) 40 MG capsule Take 40 mg by mouth in the morning. hydroCHLOROthiazide (Microzide) 12.5 MG capsule TAKE ONE CAPSULE DAILY 90 capsule 1 hydrOXYzine pamoate (Vistaril) 50 MG capsule Take 50 mg by mouth at bedtime. Ketotifen Fumarate 0.035 % solution Administer 1 drop into affected eye(s) 2 times daily. Instill 1drop into the affected eye(s) twice daily every 8 to 12 hours (maximum: do not exceed 2 applications/day). 10 mL 0 naloxone (Narcan) 4 mg/0.1 mL nasal spray Administer 0.1 mL into affected nostril(s). nicotine (Nicoderm, Step 1) 21 MG/24HR patch Place 1 patch on the skin at bed time. nortriptyline (Pamelor) 25 MG capsule Take 1 capsule (25 mg) by mouth 2 times daily. 60 capsule 0 OLANZapine (ZyPREXA) 20 MG tablet Take 1 tablet by mouth at bedtime. prazosin (Minipress) 5 MG capsule Take 5 mg by mouth at bedtime. predniSONE (Deltasone) 20 MG tablet Take 40 mg by mouth in the morning. risperiDONE (RisperDAL) 0.5 MG tablet Take 0.5 mg by mouth at bedtime. No current facility-administered medications on file prior to visit. Review of Systems Constitutional: Negative for appetite change, chills, diaphoresis and malaise/fatigue. Eyes: Negative for blurred vision, photophobia, pain and redness. Respiratory: Negative for cough, choking and shortness of breath. Cardiovascular: Negative for chest pain, palpitations, orthopnea, leg swelling and PND. Gastrointestinal: Negative for abdominal pain and anal bleeding. Musculoskeletal: Positive for back pain. Negative for neck pain. Neurological: Negative for headaches. Objective BP 127/82 (BP Location: Left arm, Patient Position: Sitting, BP Cuff Size: Adult) Pulse 70 Temp98 ??F (36.7 ??C) (Oral) Resp 20 Ht 5' 8 (1.727 m) Wt 260 lb (118 kg) SpO2 95% BMI 39.53kg/m?? Physical Exam Constitutional: General: He is not in acute distress. Appearance: Normal appearance. He is obese. He is not ill-appearing, toxic- appearing or diaphoretic. Cardiovascular: Rate and Rhythm: Normal rate. Abdominal: General: Bowel sounds are normal. Neurological: Mental Status: He is alert. Assessment/Plan Diagnoses and all orders for this visit: Type 2 diabetes mellitus with hyperglycemia, without long-term current use of insulin ([facility]) Comments: A1c at goal To resume the low-carb diet as discussed Keep as active as tolerated. Goal exercise: 150 minutes a week. Orders: - POCT Glucose - POCT HGB A1C Primary hypertension Comments: Stable No change. Acute midline low back pain without sciatica Comments: Most likely nonspecific low back pain Meds as prescribed Heat therapy recommended Call the office if no improvement within the next 6 weeks. Orders: - celecoxib (CeleBREX) 200 MG capsule; Take 1 capsule (200 mg) by mouth 2 times daily. Screen for STD (sexually transmitted disease) Comments: Safe sexual practices recommended Patient will be contacted with results. Orders: - Chlamydia/N. Gonorrhoeae RNA, TMA, Urogenitial - HIV-1/2 Antigen and Antibodies, Fourth Generation, with Reflexes; Future - Trichomonas RNA (Urine/Vaginal) - Urinalysis with reflex microscopic; Future - Syphilis Screen; Future documented in this encounter Plan of Treatment Upcoming Encounters Date Type Department Care Team (Late st Contact Info) Description 11/18/2024 11:00 AM EST Clinical Support [facility] [address] [place] [address] Jeremy Asif, RN [address] [place] [address] 12/08/2024 2:45 PM EDT Office Visit [facility] [address] [place] [address] Sean Roman MD [address] [place] [address] Scheduled Orders Name Type Priority Associated Diagnoses Orde r Schedule Chlamydia/N. Gonorrhoeae RNA, TMA, Urogenitial Microbiology Routine Screen for STD (sexually transmitted disease) Ordered: 10/28/2024 HIV-1/2 Antigen and Antibodies, Fourth Generation, with Reflexes Lab Routine Screen for STD (sexually transmitted disease) Expected: 10/28/2024 (Approximate), Expires: 10/28/2025 Trichomonas RNA (Urine/Vaginal) Lab Routine Screen for STD (sexually transmitted disease) Ordered: 10/28/2024 Syphilis Screen Lab Routine Screen for STD (sexually transmitted disease) Expected: 10/28/2024, Expires: 10/28/2025 documented as of this encounter Procedures Procedure Name Priority Date/Time Associated Diagnosis Comments POCT GLUCOSE Routine 10/28/2024 3:44 PM EST Type 2 diabetes mellitus with hyperglycemia, without long-term current use of insulin ([facility]) POCT GLYCATED HEMOGLOBIN, TOTAL Routine 10/28/2024 3:42 PM EST Type 2 diabetes mellitus with hyperglycemia, without long-term current use of insulin ([facility]) URINALYSIS WITH REFLEX MICROSCOPIC Routine 10/28/2024 3:10 PM EST Screen for STD (sexually transmitted disease) documented in this encounter Results * POCT Glucose (10/28/2024 3:44 PM EST) Glucose Blood, POC 156 60 - 200 mg/dL Comment:random QC Media Lot # [id number] Lot# Expiration Date [id number] Blood Capillary blood specimen / Unknown 10/28/2024 3:44 PM EST Sean Roman MD POINT OF CARE TEST ENTER/ED IT ORDERABLES Final Result * (ABNORMAL) POCT HGB A1C (10/28/2024 3:42 PM EST) Hemoglobin A1C 6.8(A) 4.0 - 6.0 % Comment:random QC Media Lot # [id number] Lot# Expiration Date [id number] Blood 10/28/2024 3:42 PM EST Sean Roman MD POINT OF CARE TEST ENTER/ED IT ORDERABLES Edited Result - Final * Urinalysis with reflex microscopic (10/28/2024 3:10 PM EST) Color Urine Yellow [facility] Appearance Urine Clear [facility] PH 6.5 5.0 - 9.0 [facility] Glucose Urine UA Negative Negative mg/dL [facility] Urine Blood Negative Negative [facility] Specific Mccall - Urine 1.015 1.005 - 1.025 [facility] Urine Protein Negative Neg-Trace mg/dL [facility] Urine Ketones Negative Negative mg/dL [facility] Nitrite Urine Negative Negative [facility] Leukocyte Esterase Urine Negative Negative [facility] Urine (Urine, Random) 10/28/2024 3:10 PM EST 10/28/2024 5:41 PM EST Narrative [facility] - 10/28/2024 6:00 PM EST [id number], Clean Catch Sean Roman MD LAB URINE ORDERABLES Final Result [facility] [address] [place] [address] [phone] documented in this encounter Visit Diagnoses Diagnosis Type 2 diabetes mellitus with hyperglycemia, without long-term current use of insulin ([facility])- Primary Primary hypertension Unspecified essential hypertension Acute midline low back pain without sciatica Screen for STD (sexually transmitted disease) Screening examination for venereal disease documented in this encounter Additional Health Concerns Assessment Noted Time PHQ-9 Depression Total Score: 11 024 2:03 PM EST documented as of this encounter Care Teams Mechatronics Technician Relationship Specialty Start Date End Date Sean Roman MD [address] [place] [id number] PCP - General Internal Medicine 02/10/19 Luna Palomo Buffer CopperPersonal Lines Account Manager 12/23/23 Luna palomo Buffer CopperPersonal Lines Account Manager 05/05/24 documented as of this encounter
--- OUTSIDE RECORDS SUMMARY | 2024-10-28 18:54 | XMS_ITS | Encounter Summary ---
Author Organization [facility] [facility] Address [address] [place] [address] Care Team Providers Care Retail Greeting Card Merchandiser Name Role Phone Sean Roman MD Primary Care Provider [phone] Encounter Details Date Type Department Care Team (Latest Contact Info) Description 10/28/2024 Travel Social History Tobacco Use Types Packs/Day Years [...] Description 11/18/2024 11:00 AM EST Clinical Support [facility] [address] [place] [address] Jeremy Asif, MILI [address] [place] [address] 12/08/2024 2:45 PM EDT Office Visit [facility] [address] [place] [address] Sean Roman MD [address] [place] [address] documented as of this encounter Visit Diagnoses Not on filedocumented in this encounter Additional Health Concerns Assessment Noted Time PHQ-9 Depression Total Score: 11 024 2:03 PM EST documented as of this encounter Care Teams Retail Greeting Card Merchandiser Relationship Specialty Start Date End Date Sean Roman MD [address] [place] [address] PCP - General Internal Medicine 02/10/19 Luna Palomo Rice Field WorkerNurse Practitioner Home Assessments 12/23/23 Luna palomo Rice Field WorkerNurse Practitioner Home Assessments 05/05/24 documented as of this encounter
--- OUTSIDE RECORDS SUMMARY | 2024-10-28 18:54 | XMS_ITS | Clinical Summary ---
Author Organization [employer] Address 75 [facility] 7t [place] [address] Care Team Providers Care Survey Data Technician Name Role Phone Sean Roman MD Primary Care Provider Allergies Active Allergy Reactions Criticality Noted Date Comments Penicillins Other,Unknown Medium 10/23/2022 Medications dextran 70-hypromellose (artificial tears) 0.1-0.3 % ophthalmic solution Administer 1 drop into the left eye every 2 (two) hours. 9 Active naloxone (Narcan) 4 mg/0.1 mL nasal spray Administer 0.1 mL into affected nostril(s). 0 Active nicotine (Nicoderm, Step 1) 21 MG/24HR patch Place 1 patch on the skin at bed time. 9 Active cyclobenzaprine (Flexeril) 10 MG tablet Take 10 mg by mouth if needed in the morning, at noon, and at bedtime. 3 Active FLUoxetine (PROzac) 40 MG capsule Take 40 mg by mouth in the morning. 3 Active hydrOXYzine pamoate (Vistaril) 50 MG capsule Take 50 mg by mouth at bedtime. 3 Active OLANZapine (ZyPREXA) 20 MG tablet Take 1 tablet by mouth at bedtime. 3 Active prazosin (Minipress) 5 MG capsule Take 5 mg by mouth at bedtime. 3 Active predniSONE (Deltasone) 20 MG tablet Take 40 mg by mouth in the morning. 3 Active risperiDONE (RisperDAL) 0.5 MG tablet Take 0.5 mg by mouth at bedtime. 3 Active nortriptyline (Pamelor) 25 MG capsule Take 1 capsule (25 mg) by mouth 2 times daily. 60 capsule 3 Active diclofenac (Cataflam) 50 MG tablet Take 1 tablet (50 mg) by mouth 3 times daily. 90 tablet 3 Active albuterol 108 (90 Base) MCG/ACT inhalerIndication s:SOB (shortness of breath) Inhale 2 puffs every 4 (four) hours if needed for wheezing. 18 g 3 Active Ketotifen Fumarate 0.035 % solution Administer 1 drop into affected eye(s) 2 times daily. Instill 1 drop into the affected eye(s) twice daily every 8 to 12 hours (maximum: do not exceed 2 applications/d ay). 10 mL 4 Active atenolol (Tenormin) 25 MG tabletIndications :Primary hypertension TAKE ONE TABLET BY MOUTH EVERY MORNING 30 tablet 11 4 Active amLODIPine (Norvasc) 5 MG tabletIndications :Primary hypertension TAKE ONE TABLET DAILY 90 tablet 1 4 Active hydroCHLOROthiazi de (Microzide) 12.5 MG capsuleIndication s:Primary hypertension TAKE ONE CAPSULE DAILY 90 capsule 1 4 Active buprenorphine ER (Sublocade) 100 mg/0.5mL injectionIndicati ons:Opioid type dependence, continuous (CMS/HCC) Inject 0.5 mL (1 each) under the skin every month to absorb continually. Inject 0.5 mL under the skin every month to absorb continually. 0.5 mL 5 4 02/16/20 25 Active celecoxib (CeleBREX) 200 MG capsuleIndication s:Acute midline low back pain without sciatica Take 1 capsule (200 mg) by mouth 2 times daily. 60 capsule 5 11/28/19 25 Active Hospital, Clinic, or Other Facility Administered Medication Ordered Dose Route Frequency Start Date End Date Status buprenorphine ER (Sublocade) 100 mg/0.5mL injection 1 eachIndications:Uncompli cated opioid dependence (CMS/HCC) 1 each SC Over 1 month 10/21/2024 10/21/2024 Ended Active Problems Problem Noted Date Diagnosed Date Type 2 diabetes mellitus 10/28/2024 Obesity 07/29/2024 Class 2 severe obesity due t o excess calories with serious comorbidity and body mass index (BMI) of 38.0 to 38.9 in adult 07/29/2024 Hypertriglyceridemia 12/04/2023 Overview (12/04/2023): Regular exercises recommended as well as a low carb and low chol diet. Chronic bilateral low back pain without sciatica 05/01/2023 Assessment & Plan (05/20/2023 9:18 PM EDT): Sacroiliac joint dysfunction Will start patient on nortriptyline and diclofenac Send to PT Recommended f/up with PCP Future Appointments Date Time Provider Department Center 06/05/2023 11:00 AM Jeremy Asif RN MEDICINE [facility] 06/05/2023 2:30 PM Sean Roman MD [facility] Obstructive sleep apnea syndrome 08/26/2022 Opioid dependence 08/26/2022 Tobacco use 12/10/2021 Hypertensive disorder 12/10/2021 Chronic hepatitis C 02/10/2019 Encounters Date Type Department Care Team Description 10/28/2024 2:30 PM EST Office Visit [facility] MED & PEDS [address] [place] [address] Sean Roman MD Type 2 diabetes mellitus with hyperglycemia, without long-term current use of insulin (CMS/HCC) (Primary Dx); Primary hypertension; Acute midline low back pain without sciatica; Screen for STD (sexually transmitted disease) 10/28/2024 Travel 10/27/2024 Telephone [facility] MED & PEDS [address] [place] [address] Sean Roman MD 10/21/2024 1:00 PM EST Office Visit [facility] MEDICINE [address] [place] [id number] Lubna Torres MD Uncomplicated opioid dependence (CMS/HCC) (Primary Dx) 10/21/2024 Travel 09/23/2024 2:00 PM EST Clinical Support [address] [address] Jeremy Asif RN Uncomplicated opioid dependence (CMS/HCC) (Primary Dx) 09/23/2024 Travel 08/31/2024 Telephone [facility] MED & PEDS [address] [place] [address] Sean Roman MD Jan Appt Date Change 08/31/2024 Travel 08/30/2024 10:30 AM EST Nurse Only [facility] MED & PEDS [address] [place] [address] Soco Rivera RN Encounter for immunization 08/30/2024 Travel 08/25/2024 10:00 AM EST Clinical Support [address] [address] Jeremy Asif RN Opioid type dependence, continuous (CMS/HCC) (Primary Dx) 08/25/2024 Travel 08/18/[address] [address] Jeremy Asif RN Opioid type dependence, continuous (CMS/HCC) 07/29/2024 2:30 PM EDT Office Visit [address] [address] Lubna Torres MD Opioid type dependence, continuous (CMS/HCC) (Primary Dx) 07/29/2024 9:45 AM EDT Office Visit [facility] MED & PEDS [address] [place] [address] Sean Roman MD Primary hypertension (Primary Dx); Obstructive sleep apnea syndrome; Class 2 severe obesity due to excess calories with serious comorbidity and body mass index (BMI) of 38.0 to 38.9 in adult (CMS/HCC); Encounter for immunization 07/29/2024 Travel from Last 3 Months Immunizations Name Administration Dates Next Due Hep B, adult 08/30/2024,07/29/2024,11/03/2018 Influenza injectable quadriv alent IIV4 with preservative 06/05/2023,11/03/2018 Influenza injectable quadriv alent preservative free 06/19/2022,07/11/2021,07/25/2020 Influenza, seasonal, injecta ble, preservative free 07/29/2024 Maggi SARS-CoV-2 Vaccination 12/13/2020 Pfizer Covid-19 Vaccine 12+ 08/22/2021 Pfizer Covid-19 Vaccine 12+ Bivalent 12/18/2022 Pneumococcal Conjugate PCV 20 12/25/2022 Tdap 12/25/2022,12/10/2021,11/03/2018 Social History Tobacco Use Types Packs/Day Years Used Date Smoking Tobacco: Former Cigarettes Smokeless Tobacco: Never Tobacco Cessation:Counseling Given: Not Answered Comments:Vape 10 times a day Depression Answer [...] not to disclose 2021 10:35 AM EDT Last Filed Vital Signs Vital Sign Reading [...] Mass Index 39.53 10/28/2024 2:04 PM EST Plan of Treatment Upcoming Encounters Date Type Department Care Team (Late st Contact Info) Description 11/18/2024 11:00 AM EST Clinical Support [facility] MEDICINE [address] [place] [address] Jeremy Asif, MILI [address] [place] [address] 12/08/2024 2:45 PM EDT Office Visit [facility] CHC MED & PEDS [address] [place] [address] Sean Roman MD [address] [place], [place] [phone] Health Maintenance Due Date Last Done Comments Diabetes: Foot Exam 1990 Family Planning (PISQ) 12/23/1995 Diabetes: Urine Protein Screening 12/23/1999 Hepatitis A Vaccines (1 of 2 - Risk 2-dose series) 12/23/1999 Lipid Panel 12/19/2022 12/19/2021 COVID-19 Vaccine ( season) 2024 11/06/2023, 12/18/2022, 08/22/2021, Additional history exists Depression Monitoring (PHQ-9) 06/05/2024 12/04/2023, 12/04/2023 Hepatitis B Vaccines (3 of 3 - 19+ 3-dose series) 10/25/2024 08/30/2024, 07/29/2024, 11/03/2018 Alcohol/Substance Use Screening 12/03/2024 12/04/2023 Depression Screening 12/03/2024 12/04/2023, 12/04/19 24 SDOH Screening 12/03/2024 12/04/2023 Diabetes: Hemoglobin A1C 04/27/2025 025, 01/05/2024, 12/19/2021 Tobacco Screening 10/28/2025 10/28/2024 Eye Exam 12/24/2025 12/25/2023, 11/28, 12/25/2023, Additional history exists Zoster Vaccines (1 of 2) 2030 DTaP/Tdap/Td Vaccines (4 - Td or Tdap) 12/25/2032 12/25/2022, 12/10/2021, 11/03/2018 RSV Patients and Patients Aged 60 years or older (1 - 1-dose 75+ series) 12/23/2055 HIV Screening Completed 10/10/2022, 12/26/2021 Pneumococcal Vaccine: Pediatrics (0 to 5 Years) and At-Risk Patients (6 to 49) Years) Completed 12/25/2022 Influenza Vaccine Completed 07/29/2024, , 06/19/2022, Additional history exists HIB Vaccines Aged Out No longer eligi ble based on patient's age to complete this topic HPV Vaccines Aged Out No longer eligi ble based on patient's age to complete this topic IPV Vaccines Aged Out No longer eligi ble based on patient's age to complete this topic Meningococcal Vaccine Aged Out No jose marjorie eligible based on patient's age to complete this topic RSV under 20 months Aged Out No longe r eligible based on patient's age to complete this topic Rotavirus Vaccines Aged Out No longer eligible based on patient's age to complete this topic Procedures Procedure Name Priority Date/Time Associated Diagnosis Comments POCT GLUCOSE Routine 10/28/2024 3:44 PM EST Type 2 diabetes mellitus with hyperglycemia, without long-term current use of insulin ([facility]) POCT GLYCATED HEMOGLOBIN, TOTAL Routine 10/28/2024 3:42 PM EST Type 2 diabetes mellitus with hyperglycemia, without long-term current use of insulin ([facility]) URINALYSIS WITH REFLEX MICROSCOPIC Routine 10/28/2024 3:10 PM EST Screen for STD (sexually transmitted disease) POCT JOON-14 URINE DRUG SCREEN Routine 10/21/2024 1:15 PM EST Uncomplicated opioid dependence ([facility]) POCT JOON-14 URINE DRUG SCREEN Routine 09/23/2024 2:49 PM EST Uncomplicated opioid dependence (CMS/HCC) POCT JOON-14 URINE DRUG SCREEN Routine 08/25/2024 11:24 AM EST Opioid type dependence, continuous (CMS/HCC) POCT JOON-14 URINE DRUG SCREEN Routine 07/29/2024 1:43 PM EDT Opioid type dependence, continuous (CMS/HCC) HIV 1/2 ANTIGEN/ANTIBODY, FOURTH GENERATION W/RFL Routine 10/10/2022 10:14 AM EST Chronic hepatitis C without hepatic coma (CMS/HCC) LIPID PANEL, STANDARD Routine 12/19/2021 9:40 AM EDT from Last 3 Months or Most Recently Relevant to Health Maintenance Results * POCT Glucose (10/28/2024 3:44 PM EST) Glucose Blood, POC 156 60 - 200 mg/dL Comment:random QC Media Lot # [id number] Lot# Expiration Date 482, Blood Capillary blood specimen / Unknown 10/28/2024 3:44 PM EST Sean Roman MD POINT OF CARE TEST ENTER/ED IT ORDERABLES Final Result * (ABNORMAL) POCT HGB A1C (10/28/2024 3:42 PM EST) Hemoglobin A1C 6.8(A) 4.0 - 6.0 % Comment:random QC Media Lot # [id number] Lot# Expiration Date [id number], Blood 10/28/2024 3:42 PM EST Sean Roman MD POINT OF CARE TEST ENTER/ED IT ORDERABLES Edited Result - Final * Urinalysis with reflex microscopic (10/28/2024 3:10 PM EST) Color Urine Yellow [facility] Appearance Urine Clear [facility] PH 6.5 5.0 - 9.0 [facility] Glucose Urine UA Negative Negative mg/dL [facility] Urine Blood Negative Negative [facility] Specific [place] - Urine 1.015 1.005 - 1.025 [facility] Urine Protein Negative Neg-Trace mg/dL [facility] Urine Ketones Negative Negative mg/dL [facility] Nitrite Urine Negative Negative [facility] Leukocyte Esterase Urine Negative Negative [facility] Urine (Urine, Random) 10/28/2024 3:10 PM EST 10/28/2024 5:41 PM EST Narrative [facility] - 10/28/2024 6:00 PM EST [id number], Clean Catch Sean Roman MD LAB URINE ORDERABLES Final Result [facility] [address] [place] [phone] * POCT JOON-14 Urine Drug Screen (10/21/2024 1:15 PM EST) Only the most recent of4 resultswithin the time period is included. THC Negative Cocaine Screen, Urine Negative Opiate [...] CARE TEST ENTER/ANNIKA T ORDERABLES Final Result * HIV-1/2 Antigen and Antibodies, Fourth Generation, with Reflexes (10/10/2022 10:14 AM EST) Pathologist [facility] HIV Antigen/Antibody, 4th Generation NON-REAC TIVE NON-REAC TIVE [employer] [facility] Comment: HIV-1 antigen and HIV-1/HIV-2 antibodies were not detected. There is no laboratory evidence of HIV infection. PLEASE NOTE: This information has been disclosed to you from records whose confidentiality may be protected by state law. ??If your state requires such protection, then the state law prohibits you from making any further disclosure of the information without the specific written consent of the person to whom it pertains, or as otherwise permitted by law. A general authorization for the release of medical or other information is NOT sufficient for this purpose. ?? For additional information please refer to http://education.Sportube/faq/YVI190 (This link is being provided for informational/ educational purposes only.) The performance of this assay has not been clinically validated in patients less than 2 years old. Blood Venous blood specimen / Unknown 10/10/2022 10:14 AM EST 10/10/2022 10:15 AM EST us Sean Roman MD LAB BLOOD ORDERABLES Final Result [facility] [address] [facility], [place] [address] [employer] [facility] [address] [facility], ([address]) [place] [address] * (ABNORMAL) LIPID PANEL, STANDARD (12/19/2021 9:40 AM EDT) Pathologist [facility] Chol/HDLC Ratio 6.7(H) <5.0 (calc) [facility] Cholesterol, Total 174 <200 mg/dL [facility] HDL Cholesterol 26(L) > OR = 40 mg/dL [facility] LDL Cholesterol 112(H) mg/dL (calc) [facility] Comment: Reference range: <100 ?? Desirable range <100 mg/dL for primary prevention; ?? <70 mg/dL for patients with CHD or diabetic patients ?? with > or = 2 CHD risk factors. ?? LDL-C is now calculated using the Joseluis-Vallejo ?? calculation, which is a validated novel method providing ?? better accuracy than the Friedewald equation in the ?? estimation of LDL-C. ?? Joseluis GUZMAN et al. NEEMA. 2013;310(19): 9137-1113 ?? (http://OnMyBlock.MobileForce Software/faq/ZHP655) Non-HDL Cholesterol 148(H) <130 mg/dL (calc) [facility] Comment: For patients with diabetes plus 1 major ASCVD risk ?? factor, treating to a non-HDL-C goal of <100 mg/dL ?? (LDL-C of <70 mg/dL) is considered a therapeutic ?? option. Triglycerides 249(H) <150 mg/dL [facility] Comment: ?? If a non-fasting specimen was collected, consider repeat triglyceride testing on a fasting specimen if clinically indicated. ?? Zachary et al. J. of Clin. Lipidol. 2015;9:129-169. ?? 12/19/2021 9:40 AM EDT us Sean Roman MD LAB BLOOD ORDERABLES Final Result [facility] [address] from Last 3 Months or Most Recently Relevant to Health Maintenance [facility] Care Teams Survey Data Technician Relationship Specialty Start Date End Date Sean Roman MD [address] [place] [id number] PCP - General Internal Medicine 02/10/19 Luna Palomo Assistant Quality ManagerJava Programmer 12/23/23 Luna palomo Assistant Quality ManagerJava Programmer 05/05/24
--- OUTSIDE RECORDS SUMMARY | 2024-10-28 18:54 | XMS_ITS | Encounter Summary ---
Author Organization [facility] Address [address] [facility] 7t [place] [address] Care Team Providers Care Family Preservation Officer Name Role Phone Sean Roman MD Primary Care Provider [phone] Encounter Details Date Type Department Care Team (Latest Contact Info) Description 10/21/2024 Travel Social History Tobacco Use Types Packs/Day [...] Description 11/18/2024 11:00 AM EST Clinical Support [facility] MEDICINE [address] [place] [address] Jeremy Asif, MILI [address] [place] [address] 12/08/2024 2:45 PM EDT Office Visit [facility] CHC MED & PEDS [address] [place] [address] Sean Roman MD [address] [place] [address] documented as of this encounter Visit Diagnoses Not on filedocumented in this encounter Additional Health Concerns Assessment Noted Time PHQ-9 Depression Total Score: 11 024 2:03 PM EST documented as of this encounter Care Teams Family Preservation Officer Relationship Specialty Start Date End Date Sean Roman MD [address] [place] [address] PCP - General Internal Medicine 02/10/19 Luna Palomo Dentist/OwnerProcess Improvement Specialist 12/23/23 Luna palomo Dentist/OwnerProcess Improvement Specialist 05/05/24 documented as of this encounter
--- OUTSIDE RECORDS SUMMARY | 2024-10-28 18:54 | XMS_ITS | Encounter Summary ---
Author Organization [employer] Address [address] [facility] 7t [place] [address] Care Team Providers Care Appliance Painter And Refinisher Name Role Phone Sean Roman MD Primary Care Provider Encounter Details Date Type Department Care Team (Late st Contact Info) Description 10/10/2022 Orders Only [facility] MEDICINE [address] [place] [address] Sean Roman MD [address] [place], [place] [phone] Chronic hepatitis C without hepatic coma (CMS/HCC) (Primary Dx) Social History Tobacco Use Types Packs/Day Years Used Date Smoking Tobacco: Never Assessed Sex and Gender Information Value Date Recorded Sex Assigned at Male 07/29/2022 10:35 AM EDT Legal Sex Male 10:35 AM EDT Gender Identity Male 07/29/2022 10:35 AM EDT Sexual Orientation Choose not to disclose 2021 10:35 AM EDT COVID-19 Exposure Response Date Recorded In the last 10 days, have yo u been in contact with someone who was confirmed or suspected to have Coronavirus/COVID-19? No / Unsure 09/26/2022 9:01 AM EST documented as of this encounter Miscellaneous Notes * Result Encounter Note - Sean Roman MD - 10/10/2022 10:03 AM EST Please send a copy of the results to Ganesh Chapin documented in this encounter Plan of Treatment Upcoming Encounters Date Type Department Care Team (Late st Contact Info) Description 11/18/2024 11:00 AM EST Clinical Support [facility] MEDICINE [address] [place] [address] Jeremy Asif, MILI [address] [place] [address] 12/08/2024 2:45 PM EDT Office Visit [facility] CHC MED & PEDS [address] [place] [address] Sean Roman MD [address] [place], [place] [phone] documented as of this encounter Procedures Procedure Name Priority Date/Time Associated Diagnosis Comments HIV 1/2 ANTIGEN/ANTIBODY, FOURTH GENERATION W/RFL Routine 10/10/2022 10:14 AM EST Chronic hepatitis C without hepatic coma (CMS/HCC) documented in this encounter Results * HIV-1/2 Antigen and Antibodies, Fourth Generation, with Reflexes (10/10/2022 10:14 AM EST) Pathologist [facility] HIV Antigen/Antibody, 4th Generation NON-REAC TIVE NON-REAC TIVE [employer] [facility] Comment: HIV-1 antigen and HIV-1/HIV-2 antibodies were [...] ?? For additional information please refer to http://education.LegalZoom.com/faq/XQN155 (This link is being provided for informational/ educational purposes only.) The performance of this assay has not been clinically validated in patients less than 2 years old. Blood Venous blood specimen / Unknown 10/10/2022 10:14 AM EST 10/10/2022 10:15 AM EST Sean Roman MD LAB BLOOD ORDERABLES Final Result [facility] [address] [facility] [place] [address] [employer] [facility] [address] [facility], ([address]) [place] [address] documented in this encounter Visit Diagnoses Diagnosis Chronic hepatitis C without hepatic coma (CMS/HCC)- Primary documented in this encounter Care Teams Appliance Painter And Refinisher Relationship Specialty Start Date End Date Sean Roman MD [address] [place] [phone] PCP - General Internal Medicine 02/10/19 Luna Palomo Travel GuideHospitality Associate 12/23/23 Luna palomo Travel GuideHospitality Associate 05/05/24 documented as of this encounter
--- OUTSIDE RECORDS SUMMARY | 2024-10-28 18:54 | XMS_ITS | Encounter Summary ---
Author Organization [employer] Address [address] [place] [address] 7 [place] [address] Care Team Providers Care Preschool Director Name Role Phone Sean Roman MD Primary Care Provider Reason for Visit * Reason Onset Date Comments Paperwork/Forms 11/18/2023 Encounter Details Date Type Department Care Team ([facility] st Contact Info) Description 11/18/2023 Telephone [facility] CHC MED & PEDS [address] [place] [address] Sean Roman MD [address] [place] [address] Paperwork/Forms Social History Tobacco Use Types Packs/Day Years [...] encounter Miscellaneous Notes * Telephone Encounter - Carla Caicedo - 11/18/2023 9:30 AM EST Tc from [facility] with Yamile Aguilar requesting physician summary form and last OV notes to be faxed [phone]. States she faxed over requesting on 10/15. Also states if not received by end of this week, pt will lose all services. Any questions/clarification, please contact [facility] at [phone] documented in this encounter Plan of Treatment Upcoming Encounters Date Type Department Care Team (Late st Contact Info) Description 11/18/2024 11:00 AM EST Clinical Support [facility] MEDICINE [address] [place] [address] Jeremy Asif, RN [address] [place] [address] 12/08/2024 2:45 PM EDT Office Visit [facility] CHC MED & PEDS [address] [place] [address] Sean Roman MD [address] [place] [address] documented as of this encounter Visit Diagnoses Not on filedocumented in this encounter Care Teams Preschool Director Relationship Specialty Start Date End Date Sean Roman MD [address] [place] [address] PCP - General Internal Medicine 02/10/19 Luna Palomo Projects ManagerSorter Pricer 12/23/23 Luna palomo Projects ManagerSorter Pricer 05/05/24 documented as of this encounter
[2024-10-29 04:00] LABS: Syphilis Screen Nonreactive (Nonreactive)
[2024-10-29 04:23] LABS: HIV AB/AG Nonreactive (Nonreactive); HIV Num 1 0.07 S/CO (0.00-0.99)
[2024-10-29 05:26] LABS: CT PCR NOT DETECTED (Not Detect.); NG PCR NOT DETECTED (Not Detect.)
== END 2024-10-28 15:01 | disposition home or self-care (01) ==
LOC: HO.CHCLDS 15:00
PROVIDERS: Visit Provider Internal Medicine
DX: Z11.3 Encounter for screening for infections with a predominantly sexual mode of transmission (principal)
CPT/HCPCS: 36415; 81003; 86780; 87389; 87491; 87591

== ENCOUNTER 2025-01-07 08:17 | Outpatient (REF) | payer MEDICAID, SELFPAY ==
--- OUTSIDE RECORDS SUMMARY | 2025-01-07 08:21 | XMS_ITS | Encounter Summary ---
Author Organization [employer] [facility] Address [address] [facility] 7t [place] [address] Care Team Providers Care Platform Consultant Name Role Phone Sean Roman MD Primary Care Provider [phone] Karime Macario PharmD Unavailable [phone] Reason for Visit * Reason Onset Date Comments Med Refill 01/04/2025 Encounter Details Date Type Department Care Team (Late st Contact Info) Description 01/04/2025 Refill [facility] MEDICINE [address] [place] [address] Lubna Torres MD [address] [place] [address] Opioid type dependence, continuous (CMS/HCC); Uncomplicated opioid dependence (CMS/HCC) Social History Tobacco Use Types Packs/Day Years Used Date Smoking Tobacco: Former Cigarettes Smokeless Tobacco: Never Comments:Vape 10 times a day Alcohol Answer Date Recorded Q1: How often do you have a drink containing alc ohol? 2 12/08/2024 Q2: How many drinks containi ng alcohol do you have on a typical day when you are drinking? 0 12/08/2024 Q3: How often do you have six or more drinks on one occasion? 2 12/08/2024 Depression Answer Date Recorded Patient Health Questionnaire-9 Score 10 12/08/2024 Patient Health Questionnaire-9 Score 10 12/08/2024 Last PHQ-9: Questionnaire Data Not on file 0 12/08/2024 Housing Stability Answer Date Recorded What is [...] Date Recorded Patient Health Questionnaire-2 Score 4 12/08/2024 Internet Access Answer Date Recorded Internet Access Q1 Yes 12/01/2024 Internet Access Q2 Not on file 12/01/2024 Sex and Gender Information Value Date Recorded Sex Assigned at Male 07/29/2022 10:35 AM EDT Legal Sex Male 10:35 AM EDT Gender Identity Male 07/29/2022 10:35 AM EDT Sexual Orientation Choose not to disclose 2021 10:35 AM EDT documented as of this encounter Plan of Treatment Upcoming Encounters Date Type Department Care Team (Late st Contact Info) Description 01/13/2025 10:30 AM EDT Clinical Support [facility] MEDICINE [address] [place] [address] Jeremy Asif, RN [address] [place] [address] 01/20/2025 1:00 PM EDT Medication Management [facility] MED & PEDS [address] [place] [address] Karime Macario, VinodD [address] [place] [address] 02/08/2025 3:15 PM EDT Office Visit [facility] MED & PEDS [address] [place] [address] Sean Roman MD 505 [place] [address] 02/10/2025 1:00 PM EDT Office Visit [facility] MEDICINE [address] [place] [address] Lubna Torres MD [address] [place] [address] documented as of this encounter Goals Goal Patient Goal Type Associated Problems Recent Progress Patient-Stated? Author Take your medication every day Lifestyle On track( 025 2:14 PM EDT) Jeremy Grissom, RN documented as of this encounter Visit Diagnoses Diagnosis Opioid type dependence, continuous (CMS/HCC) Opioid type dependence, continuous Uncomplicated opioid dependence (CMS/HCC) documented in this encounter Additional Health Concerns Assessment Noted Time PHQ-9 Depression Total Score: 10 025 3:50 PM EDT documented as of this encounter Care Teams Platform Consultant Relationship Specialty Start Date End Date Sean Roman MD [address] [place] [address] PCP - General Internal Medicine 02/10/19 Karime Macario PharmD [address] [place] [address] Pharmacist Internal Medicine 12/16/24 Luna Palomo [employer] ManagerObstetrics Scrub Nurse 12/23/23 Luna palomo [employer] ManagerObstetrics Scrub Nurse 05/05/24 documented as of this encounter
--- OUTSIDE RECORDS SUMMARY | 2025-01-07 08:21 | XMS_ITS | Encounter Summary ---
Author Organization [employer] Address [address] [facility] 7t [place] [address] Care Team Providers Care Blood Bank Laboratory Technologist Name Role Phone Sean Roman MD Primary Care Provider [phone] Karime Macario PharmD Unavailable Encounter Details Date Type Department Care Team (Late st Contact Info) Description 10/10/2022 Orders Only [facility] MEDICINE [address] [place] [address] Sean Roman MD 505 [place], [place] [phone] Chronic hepatitis C without hepatic coma (CMS/HCC) [...] Description 01/13/2025 10:30 AM EDT Clinical Support [facility] [address] [place] [address] Jeremy Asif, MILI [address] [place] [address] 01/20/2025 1:00 PM EDT Medication Management [facility] MED & PEDS [address] [place] [address] Karime Macario PharmD [address] [place] [address] 02/08/2025 3:15 PM EDT Office Visit [facility] MED & PEDS [address] [place] [address] Sean Roman MD 505 [place] [address] 02/10/2025 1:00 PM EDT Office Visit [facility] [address] [place] [address] Lubna Torres MD 230 [place] [address] documented as of this encounter Procedures Procedure Name Priority Date/Time Associated Diagnosis Comments HIV 1/2 ANTIGEN/ANTIBODY, FOURTH GENERATION W/RFL Routine 10/10/2022 10:14 AM EST Chronic hepatitis C without hepatic coma (CMS/HCC) documented in this encounter Results * HIV-1/2 Antigen and Antibodies, Fourth Generation, with Reflexes (10/10/2022 10:14 AM EST) HIV Antigen/Antibody, 4th Generation NON-REAC TIVE NON-REAC TIVE [facility] [facility] Comment: HIV-1 antigen and HIV-1/HIV-2 antibodies [...] ?? For additional information please refer to http://education.Mofibo/faq/EVJ939 (This link is being provided for informational/ educational purposes only.) The performance of this assay has not been clinically validated in patients less than 2 years old. Blood Venous blood specimen / Unknown 10/10/2022 10:14 AM EST 10/10/2022 10:15 AM EST Sean Roman MD LAB BLOOD ORDERABLES Final Result [employer] [address] [place] [address], [place] [address] [employer] [facility] [address] [facility], ([address]) [place] [address] documented in this encounter Visit Diagnoses Diagnosis Chronic hepatitis C without hepatic coma (CMS/HCC)- Primary documented in this encounter Care Teams Blood Bank Laboratory Technologist Relationship Specialty Start Date End Date Sean Roman MD [address] [place] [address] PCP - General Internal Medicine 02/10/19 Karime Macario PharmD [address] [place] [address] Pharmacist Internal Medicine 12/16/24 Luna Palomo Horser UpBurner Operator 12/23/23 Luna palomo Horser UpBurner Operator 05/05/24 documented as of this encounter
--- OUTSIDE RECORDS SUMMARY | 2025-01-07 08:21 | XMS_ITS | Encounter Summary ---
Author Organization [employer] [facility] Address [address] [facility] 7t [place] [address] Care Team Providers Care Director Private Name Role Phone Sean Roman MD Primary Care Provider [phone] Karime Macario PharmD Unavailable [phone] Encounter Details Date Type Department Care Team (Latest Contact Info) Description 01/06/2025 Travel Social History Tobacco Use Types Packs/Day [...] Description 01/13/2025 10:30 AM EDT Clinical Support [facility] MEDICINE [address] [place] [address] Jeremy Asif RN [address] [place] [address] 01/20/2025 1:00 PM EDT Medication Management [facility] MED & PEDS 505 [place] [address] Karime Macario, VinodD [address] [place] [address] 02/08/2025 3:15 PM EDT Office Visit [facility] MED & PEDS 505 [place] [address] Sean Roman MD 505 [place] [address] 02/10/2025 1:00 PM EDT Office Visit [facility] MEDICINE [address] [place] [address] Lubna Torres MD [address] [place] [address] documented as of this encounter Goals Goal Patient Goal Type Associated Problems Recent Progress Patient-Stated? Author Take your medication every day Lifestyle On track( 025 2:14 PM EDT) No Jeremy Asif, MILI documented as of this encounter Visit Diagnoses Not on filedocumented in this encounter Additional Health Concerns Assessment Noted Time PHQ-9 Depression Total Score: 10 025 3:50 PM EDT documented as of this encounter Care Teams Director Private Relationship Specialty Start Date End Date Sean Roman MD [address] [place] [address] PCP - General Internal Medicine 02/10/19 Karime Macario PharmD [address] [place] [address] Pharmacist Internal Medicine 12/16/24 Luna Palomo Char Belt OperatorSexologist 12/23/23 Luna palomo Char Belt OperatorSexologist 05/05/24 documented as of this encounter
--- OUTSIDE RECORDS SUMMARY | 2025-01-07 08:21 | XMS_ITS | Encounter Summary ---
Author Organization [employer] [facility] Address [address] [place] [address] Care Team Providers Care Interlacer Name Role Phone Sean Roman MD Primary Care Provider [phone] Karime Macario PharmD Unavailable [phone] Reason for Visit * Reason Onset Date Comments PT1 06/16/2023 Encounter Details Date Type Department Care Team (Late st Contact Info) Description 06/16/2023 Telephone [facility] MEDICINE [address] [place] [address] Sean Roman MD 505 [place] [address] PT1 Social History Tobacco Use Types Packs/Day [...] the mail. * Telephone Encounter - Carla Caicedo - 06/16/2023 1:34 PM EDT Tc from pt requesting a PT1 Date: 06/26 Time: 10:15 am address: [address] [place] [address] specialty: [facility] # visits: n/a reconsignment clerk: no Wheelchair: no documented in this encounter Plan of Treatment Upcoming Encounters Date Type Department Care Team (Late st Contact Info) Description 01/13/2025 10:30 AM EDT Clinical Support [facility] MEDICINE [address] [place] [address] Jeremy Asif, MILI [address] [place] [address] 01/20/2025 1:00 PM EDT Medication Management [facility] MED & PEDS 505 [place] [address] Karime Macario PharmD [address] [place] [address] 02/08/2025 3:15 PM EDT Office Visit [facility] MED & PEDS 505 [place] [address] Sean Roman MD 505 [place] [address] 02/10/2025 1:00 PM EDT Office Visit [facility] MEDICINE [address] [place] [address] Lubna Torres MD [address] [place] [address] documented as of this encounter Visit Diagnoses Not on filedocumented in this encounter Care Teams Interlacer Relationship Specialty Start Date End Date Sean Roman MD [address] [place] [address] PCP - General Internal Medicine 02/10/19 Karime Macario PharmD [address] [place] [address] Pharmacist Internal Medicine 12/16/24 Luna Palomo [employer] DeveloperCast Associate 12/23/23 Luna palomo [employer] DeveloperCast Associate 05/05/24 documented as of this encounter
--- OUTSIDE RECORDS SUMMARY | 2025-01-07 08:21 | XMS_ITS | Encounter Summary ---
Author Organization [employer] Address [address] [place] [address] [place] [address] Care Team Providers Care Business Analyst Consultant Name Role Phone Sean Roman MD Primary Care Provider [phone] Karime Macario PharmD Unavailable [phone] Reason for Visit * Reason Onset Date Comments Paperwork/Forms 11/18/2023 Encounter Details Date Type Department Care Team ([facility] st Contact Info) Description 11/18/2023 Telephone [facility] MED & PEDS [address] [place], [place] [phone] Sean Roman MD [address] [place] [address] Paperwork/Forms Social History Tobacco Use Types Packs/Day [...] Miscellaneous Notes * Telephone Encounter - Carla Sascha - 11/18/2023 9:30 AM EST [facility] physician summary form and last OV notes to be faxed [phone]. States she faxed over requesting on 10/15. Also states if not received by end of this week, pt will lose all services. Any questions/clarification, please contact [facility] at [phone] documented in this encounter Plan of Treatment Upcoming Encounters Date Type Department Care Team (Late st Contact Info) Description 01/13/2025 10:30 AM EDT Clinical Support [facility] MEDICINE [address] [address] Jeremy Asif, RN [address] [place] [address] 01/20/2025 1:00 PM EDT Medication Management [facility] MED & PEDS [address] [place] [address] Karime Macario PharmD [address] [place] [address] 02/08/2025 3:15 PM EDT Office Visit [facility] MED & PEDS [address] [place] [address] Sean Roman MD [address] [place] [address] 02/10/2025 1:00 PM EDT Office Visit [facility] MEDICINE [address] [place] [address] Lubna Torres MD [address] [place] [address] documented as of this encounter Visit Diagnoses Not on filedocumented in this encounter Care Teams Business Analyst Consultant Relationship Specialty Start Date End Date Sean Roman MD [address] [place] [address] PCP - General Internal Medicine 02/10/19 Karime Macario, PharmD [address] [place] [address] Pharmacist Internal Medicine 12/16/24 Luna Palomo Rn Cardiac RehabMetal Tank Erector 12/23/23 Luna palomo Rn Cardiac RehabMetal Tank Erector 05/05/24 documented as of this encounter
--- OUTSIDE RECORDS SUMMARY | 2025-01-07 08:21 | XMS_ITS | Encounter Summary ---
Author Organization [facility] Address [address] [place] [address] 7 [place] [address] Care Team Providers Care Bone Drier Operator Name Role Phone Sean Roman MD Primary Care Provider [phone] Karime Macario PharmD Unavailable [phone] Encounter Details Date Type Department Care Team (Late Contact Info) Description 09/04/2023 Orders Only [facility] MED & PEDS [address] [place] [address] Sean Roman MD [address] [place] [address] Social History Tobacco Use Types Packs/Day Years [...] Description 01/13/2025 10:30 AM EDT Clinical Support [facility] MEDICINE [address] [place] [address] Jeremy Asif, MILI [address] [place] [address] 01/20/2025 1:00 PM EDT Medication Management [facility] MED & PEDS [address] [place] [address] Karime Macario, PharmD [address] [place] [address] 02/08/2025 3:15 PM EDT Office Visit [facility] MED & PEDS [address] [place] [address] Sean Roman MD [address] [place] [address] 02/10/2025 1:00 PM EDT Office Visit [facility] MEDICINE [address] [place] [address] Lubna Torres MD [address] [place] [address] documented as of this encounter Visit Diagnoses Not on filedocumented in this encounter Care Teams Bone Drier Operator Relationship Specialty Start Date End Date Sean Roman MD [address] [place] [address] PCP - General Internal Medicine 02/10/19 Karime Macario PharmD [address] [place] [address] Pharmacist Internal Medicine 12/16/24 Luna Palomo Cartoon DesignerManager Global 12/23/23 Luna palomo Cartoon DesignerManager Global 05/05/24 documented as of this encounter
--- OUTSIDE RECORDS SUMMARY | 2025-01-07 08:21 | XMS_ITS | Clinical Summary ---
Author Organization [facility] Address [address] [facility] [address] [place] [address] Care Team Providers Care Pediatric Physician Name Role Phone Sean Roman MD Primary Care Provider [phone] Karime Macario PharmD Unavailable [phone] Allergies Active Allergy Reactions Criticality Noted Date Comments Penicillins Other,Unknown Medium 10/23/2022 Medications dextran 70-hypromellose (artificial tears) 0.1-0.3 % ophthalmic solution Administer 1 drop into the left eye every 2 (two) hours. 03/24/20 19 Active naloxone (Narcan) 4 mg/0.1 mL nasal spray Administer 0.1 mL into affected nostril(s). 06/29/20 20 Active FLUoxetine (PROzac) 40 MG capsule Take 40 mg by mouth in the morning. 04/08/20 23 Active albuterol 108 (90 Base) MCG/ACT inhalerIndicati ons:SOB (shortness of breath) Inhale 2 puffs every 4 (four) hours if needed for wheezing. 18 g 06/05/20 23 Active Ketotifen Fumarate 0.035 % solution Administer 1 drop into affected eye(s) 2 times daily. Instill 1 drop into the affected eye(s) twice daily every 8 to 12 hours (maximum: do not exceed 2 applications/ day). 10 mL 12/04/19 24 Active atenolol (Tenormin) 25 MG tabletIndicatio ns:Primary hypertension TAKE ONE TABLET BY MOUTH EVERY MORNING 30 tablet 11 12/15/19 24 Active amLODIPine (Norvasc) 5 MG tabletIndicatio ns:Primary hypertension TAKE ONE TABLET DAILY 90 tablet 1 07/14/20 24 Active hydroCHLOROthia zide (Microzide) 12.5 MG capsuleIndicati ons:Primary hypertension TAKE ONE CAPSULE DAILY 90 capsule 1 07/14/20 24 Active polyethylene glycol, PEG, 3350 (Glycolax) 17 GM/SCOOP powderIndicatio ns:Chronic constipation STIR 17GM INTO 8 OUNCES OF WATER, OR JUICE, AND DRINK DAILY NEEDED / DIRECTED 510 g 2 11/16/19 25 Active metFORMIN (Glucophage) 500 MG tabletIndicatio ns:Type 2 diabetes mellitus with hyperglycemia, without long-term current use of insulin (CMS/[facility]) Take 1 tablet (500 mg) by mouth with breakfast and with evening meal. 60 tablet 11 12/09/19 25 026 Active FREESTYLE LITE test stripIndication s:Type 2 diabetes mellitus with hyperglycemia, without long-term current use of insulin (CMS/HCC) Use to test blood sugar 1 times daily 100 each 12 12/09/19 25 026 Active Lancets miscIndications :Type 2 diabetes mellitus with hyperglycemia, without long-term current use of insulin (CMS/[facility]) Use to test blood sugar 1 times daily 100 each 12/09/19 25 Active Alcohol Swabs 70 % padsIndications :Type 2 diabetes mellitus with hyperglycemia, without long-term current use of insulin (CMS/HCC) Use to test blood sugar 1 times daily 100 each 11 12/09/19 25 Active Blood Glucose Monitoring Suppl (FreeStyle Manlius Lite) w/Device kitIndications: Type 2 diabetes mellitus with hyperglycemia, without long-term current use of insulin ([facility]) Use to test blood sugar 1 times daily 1 kit 12/09/19 25 Active doxycycline (Vibra-Tabs) 100 MG tabletIndicatio ns:Inflammatory acne Take 1 tablet (100 mg) by mouth 2 times daily. Take with a full glass of water and do not lie down for at least 30 minutes after. 60 tablet 12/09/19 25 025 Active gabapentin (Neurontin) 300 MG capsule Take 1 capsule by mouth every 6 (six) hours during the day. 12/08/19 25 Active hydrOXYzine HCl (Atarax) 50 MG tablet Take 50 mg by mouth at bedtime. 11/30/19 25 Active OLANZapine (ZyPREXA) 15 MG tablet Take 1 tablet by mouth at bedtime. 12/10/19 25 Active prazosin (Minipress) 2 MG capsule TAKE 4 CAPSULES BY MOUTH AT BEDTIME 08/30/20 24 Active Dulaglutide (Trulicity) 0.75 MG/0.5ML solution auto-injector Inject 0.75 mg under the skin 1 (one) time per week. 2 mL 2 12/17/19 25 Active buprenorphine ER (Sublocade) 100 mg/0.5mL injectionIndica tions:Opioid type dependence, continuous (CMS/HCC) Inject 0.5 mL (1 each) under the skin every month to absorb continually. Inject 0.5 mL under the skin every month to absorb continually. 0.5 mL 5 01/05/20 25 025 Active buprenorphine-n aloxone (Suboxone) 2-0.5 MG per sublingual filmIndications :Uncomplicated opioid dependence (CMS/HCC) Place 1 Film under the tongue 2 times daily for 28 days. 56 Film 01/05/20 25 025 Active nicotine (Nicoderm, Step 1) 21 MG/24HR patch Place 1 patch on the skin at bed time. 02/11/20 19 025 Discontinued(M ed list cleanup (will not trigger notification to Pharmacy)) cyclobenzaprine (Flexeril) 10 MG tablet Take 10 mg by mouth if needed in the morning, at noon, and at bedtime. 04/23/20 025 Discontinued(M ed list cleanup (will not trigger notification to Pharmacy)) hydrOXYzine pamoate (Vistaril) 50 MG capsule Take 50 mg by mouth at bedtime. 04/08/20 025 Discontinued(M ed list cleanup (will not trigger notification to Pharmacy)) OLANZapine (ZyPREXA) 20 MG tablet Take 1 tablet by mouth at bedtime. 04/12/20 025 Discontinued(D ose adjustment) prazosin (Minipress) 5 MG capsule Take 5 mg by mouth at bedtime. 04/08/20 23 025 Discontinued(M ed list cleanup (will not trigger notification to Pharmacy)) predniSONE (Deltasone) 20 MG tablet Take 40 mg by mouth in the morning. 04/23/20 025 Discontinued(M ed list cleanup (will not trigger notification to Pharmacy)) risperiDONE (RisperDAL) 0.5 MG tablet Take 0.5 mg by mouth at bedtime. 04/08/20 23 025 Discontinued(M ed list cleanup (will not trigger notification to Pharmacy)) nortriptyline (Pamelor) 25 MG capsule Take 1 capsule (25 mg) by mouth 2 times daily. 60 capsule 05/01/20 23 025 Discontinued(M ed list cleanup (will not trigger notification to Pharmacy)) diclofenac (Cataflam) 50 MG tablet Take 1 tablet (50 mg) by mouth 3 times daily. 90 tablet 05/01/20 23 025 Discontinued(M ed list cleanup (will not trigger notification to Pharmacy)) buprenorphine ER (Sublocade) 100 mg/0.5mL injectionIndica tions:Opioid type dependence, continuous (CMS/HCC) Inject 0.5 mL (1 each) under the skin every month to absorb continually. Inject 0.5 mL under the skin every month to absorb continually. 0.5 mL 5 08/19/20 24 025 Discontinued(R eorder (will not trigger notification to Pharmacy)) buprenorphine-n aloxone (Suboxone) 2-0.5 MG per sublingual filmIndications :Uncomplicated opioid dependence (CMS/HCC) Place 1 Film under the tongue Once per day for 28 days. 28 Film 11/18/19 25 025 Discontinued(R eorder (will not trigger notification to Pharmacy)) chlorhexidine (Peridex) 0.12 % solutionIndicat ions:Tooth ache Use 15 mL in the mouth or throat if needed for wound care for up to 14 days. 473 mL 12/09/19 25 025 buprenorphine-n aloxone (Suboxone) 2-0.5 MG per sublingual filmIndications :Uncomplicated opioid dependence (CMS/HCC) Place 1 Film under the tongue Once per day for 28 days. 28 Film 12/17/19 25 025 Discontinued(R eorder (will not trigger notification to Pharmacy)) buprenorphine-n aloxone (Suboxone) 2-0.5 MG per sublingual filmIndications :Uncomplicated opioid dependence (CMS/HCC) Place 1 Film under the tongue 2 times daily for 14 days. 28 Film 12/17/19 25 025 Discontinued(R eorder (will not trigger notification to Pharmacy)) Hospital, Clinic, or Other Facility Administered Medication Ordered Dose Route Frequency Start Date End Date Status buprenorphine ER (Sublocade) 100 mg/0.5mL injection 1 eachIndications:Uncompli cated opioid dependence (CMS/HCC) 1 each SC Over 1 month 12/16/2024 12/16/2024 Ended Active Problems Problem Noted Date Diagnosed Date Aortic valve sclerosis 12/16/2024 Diastolic dysfunction 12/16/2024 Type 2 diabetes mellitus 10/28/2024 Obesity 07/29/2024 Class 2 severe obesity due t o excess calories with serious comorbidity and body mass index (BMI) of 38.0 to 38.9 in adult 07/29/2024 Acute deep vein thrombosis (DVT) of right perone al vein 04/18/2024 Hypertriglyceridemia 12/04/2023 Overview (12/04/2023): Regular exercises recommended as well as a low carb and low chol diet. Chronic bilateral low back pain without sciatica 05/01/2023 Assessment & Plan (05/20/2023 9:18 PM EDT): Sacroiliac joint dysfunction Will start patient on nortriptyline and diclofenac Send to PT Recommended f/up with PCP Future Appointments Date Time Provider Department Center 06/05/2023 11:00 AM Jeremy Asif RN MEDICINE [facility] 06/05/2023 2:30 PM Sean Roman MD [facility] MED [facility] Obstructive sleep apnea syndrome 08/26/2022 Opioid dependence 08/26/2022 Tobacco use 12/10/2021 Hypertensive disorder 12/10/2021 Chronic hepatitis C 02/10/2019 Encounters Date Type Department Care Team Description 01/06/2025 11:00 AM EDT Office Visit [facility] [address] [place] [address] Jacqueline Cochran, DONNY Type 2 diabetes mellitus without ophthalmic manifestations (CMS/HCC) (Primary Dx); Amblyopia suspect, right eye; Presbyopia 01/06/2025 Travel 01/05/2025 Travel 01/04/2025 Refill [facility] [address] [place] [address] Lubna Torres MD Opioid type dependence, continuous (CMS/HCC); Uncomplicated opioid dependence (CMS/HCC) 12/23/2024 Travel 12/16/2024 1:00 PM EDT Clinical Support [facility] [address] [place] [phone] Jeremy Asif RN Uncomplicated opioid dependence (CMS/HCC) (Primary Dx) 12/16/2024 Refill [facility] [address] [place] [phone] Jeremy Asif RN Uncomplicated opioid dependence (CMS/HCC) 12/16/2024 Refill [facility] [address] [place] [phone] Jeremy Asif RN Uncomplicated opioid dependence (CMS/HCC) 12/16/2024 Travel 12/10/2024 Population Health Risk Score [facility] () [address] [phone] Provider, Population Health Generic 12/08/2024 2:45 PM EDT Office Visit [facility] [address] [place] [address] Sean Roman MD Annual physical exam (Primary Dx); Type 2 diabetes mellitus with hyperglycemia, without long-term current use of insulin (CMS/HCC); Dietary counseling; Exercise counseling; Class 3 severe obesity due to excess calories with serious comorbidity and body mass index (BMI) of 40.0 to 44.9 in adult (CMS/HCC); Primary hypertension; Tooth ache; Inflammatory acne 12/08/2024 Travel 12/01/2024 Patient Outreach [facility] [address] [place] [address] Sean Roman MD Pre-visit Planning (SDOH negative. Tobacco screening negative. ) 11/18/2024 11:00 AM EST Clinical Support [facility] [address] [place] [phone] Jeremy Asif RN Uncomplicated opioid dependence (CMS/HCC) (Primary Dx) 11/18/2024 Refill [facility] [address] [place] [phone] Lubna Torres MD Uncomplicated opioid dependence (CMS/HCC) (Primary Dx) 11/15/2024 Refill [facility] [address] [place] [address] Sean Roman MD Chronic constipation 10/28/2024 2:30 PM EST Office Visit [facility] [address] [place] [address] Sean Roman MD Type 2 diabetes mellitus with hyperglycemia, without long-term current use of insulin (CMS/HCC) (Primary Dx); Primary hypertension; Acute midline low back pain without sciatica; Screen for STD (sexually transmitted disease) 10/28/2024 Travel 10/27/2024 Telephone [facility] [address] [place] [address] Sean Roman MD 10/21/2024 1:00 PM EST Office Visit [facility] [address] [place] [address] Lubna Torres MD Uncomplicated opioid dependence (CMS/HCC) (Primary Dx) 10/21/2024 Travel from Last 3 Months Immunizations Name Administration Dates Next Due Hep B, adult 08/30/2024,07/29/2024,11/03/2018 Influenza injectable quadriv alent IIV4 with preservative 06/05/2023,11/03/2018 Influenza injectable quadriv alent preservative free 06/19/2022,07/11/2021,07/25/2020 Influenza, seasonal, injecta ble, preservative free 07/29/2024 Maggi SARS-CoV-2 Vaccination 12/13/2020 Pfizer Covid-19 Vaccine 12+ 11/08/2024, Pfizer Covid-19 Vaccine 12+ Bivalent 12/18/2022 Pneumococcal Conjugate PCV 20 12/25/2022 Tdap 12/25/2022,12/10/2021,11/03/2018 Social History Tobacco Use Types Packs/Day Years Used Date Smoking Tobacco: Former Cigarettes Smokeless Tobacco: Never Tobacco Cessation:Counseling Given: Not Answered Comments:Vape 10 times a day Alcohol Answer [...] Sign Reading Time Taken Comments Blood Pressure 118/72 12/16/2024 2:36 PM EDT Pulse 92 12/16/2024 2:36 PM EDT Temperature 37.2 ??C (98.9 ??F) 12/08/2024 2:30 PM ED T Respiratory Rate 18 12/08/2024 2:30 PM EDT Oxygen Saturation 98% 12/08/2024 2:30 PM EDT Inhaled Oxygen Concentration - - Weight 120 kg (265 lb) 12/08/2024 2:30 PM EDT Height 172.7 cm (5' 8 ) 12/08/2024 2:30 PM EDT Body Mass Index 40.29 12/08/2024 2:30 PM EDT Plan of Treatment Upcoming Encounters Date Type Department Care Team (Late st Contact Info) Description 01/13/2025 10:30 AM EDT Clinical Support [facility] [address] [place] [phone] Jeremy Asif, MILI [address] [place] [phone] 01/20/2025 1:00 PM EDT Medication Management [facility] [address] [place] [address] Karime Macario PharmD [address] [place] [phone] 02/08/2025 3:15 PM EDT Office Visit [facility] [address] [place] [address] Sean Roman MD [address] [place] [address] 02/10/2025 1:00 PM EDT Office Visit [facility] [address] [place] [phone] Lubna Torres MD [address] [place] [phone] Health Maintenance Due Date Last Done Comments Family Planning (PISQ) 12/23/1995 Diabetes: Urine Protein Screening 12/23/1999 Hepatitis A Vaccines (1 of 2 - Risk 2-dose series) 12/23/1999 Lipid Panel 12/19/2022 12/19/2021 Hepatitis B Vaccines (3 of 3 - 19+ 3-dose series) 10/25/2024 08/30/2024, 07/29/2024, 11/03/2018 Diabetes: Hemoglobin A1C 04/27/2025 025, 01/05/2024, 12/19/2021 Depression Monitoring 06/10/2025 12/08/2024, 025 SDOH Screening 12/01/2025 12/01/2024 Alcohol/Substance Use Screening 12/08/2025 12/08/2024 Depression Screening 12/08/2025 12/08/2024, 12/09/19 25 Diabetes: Foot Exam 12/08/2025 12/08/2024 Tobacco Screening 01/06/2026 01/06/2025 Eye Exam 01/06/2027 01/06/2025, 12/28, 01/06/2025, Additional history exists Zoster Vaccines (1 of 2) 2030 DTaP/Tdap/Td Vaccines (4 - Td or Tdap) 12/25/2032 12/25/2022, 12/10/2021, 11/03/2018 RSV Patients and Patients Aged 60 years or older (1 - 1-dose 75+ series) 12/23/2055 Pneumococcal Vaccine: Pediatrics (0 to 5 Years) and At-Risk Patients (6 to 49) Years) Completed 12/25/2022 Influenza Vaccine Completed 07/29/2024, , 06/19/2022, Additional history exists HIV Screening Completed 10/28/2024, 09/29, 12/26/2021 COVID-19 Vaccine Completed 11/08/2024, 04/2024, 12/18/2022, Additional history exists HIB Vaccines Aged Out [...] on patient's age to complete this topic Goals Goal Patient Goal Type Associated Problems Recent Progress Patient-Stated? Author Take your medication every day Lifestyle On track( 025 2:14 PM EDT) No Jeremy Asif RN Procedures Procedure Name Priority Date/Time Associated Diagnosis Comments POCT JOON-14 URINE DRUG SCREEN Routine 12/16/2024 1:23 PM EDT Uncomplicated opioid dependence (CMS/HCC) POCT GLUCOSE Routine 12/08/2024 2:33 PM EDT Type 2 diabetes mellitus with hyperglycemia, without long-term current use of insulin (CMS/HCC) POCT JOON-14 URINE DRUG SCREEN Routine 11/18/2024 11:04 AM EST Uncomplicated opioid dependence (CMS/HCC) POCT GLUCOSE Routine 10/28/2024 3:44 PM EST Type 2 diabetes mellitus with hyperglycemia, without long-term current use of insulin (CMS/HCC) POCT GLYCATED HEMOGLOBIN, TOTAL Routine 10/28/2024 3:42 PM EST Type 2 diabetes mellitus with hyperglycemia, without long-term current use of insulin (CMS/HCC) URINALYSIS WITH REFLEX MICROSCOPIC Routine 10/28/2024 3:10 PM EST Screen for STD (sexually transmitted disease) SYPHILIS SCREEN Routine 10/28/2024 3:02 PM EST Screen for STD (sexually transmitted disease) HIV 1/2 ANTIGEN/ANTIBODY, FOURTH GENERATION W/RFL Routine 10/28/2024 3:02 PM EST Screen for STD (sexually transmitted disease) CHLAMYDIA/N. GONORRHOEAE RNA, TMA, UROGENITAL Routine 10/28/2024 3:00 PM EST Screen for STD (sexually transmitted disease) POCT JOON-14 URINE DRUG SCREEN Routine 10/21/2024 1:15 PM EST Uncomplicated opioid dependence (CMS/HCC) LIPID PANEL, STANDARD Routine 12/19/2021 9:40 AM EDT from Last 3 Months or Most Recently Relevant to Health Maintenance Results * POCT JOON-14 Urine Drug Screen (12/16/2024 1:23 PM EDT) Only the most recent of3 resultswithin the time period is included. THC [...] obtained by clean catch procedure / Unknown 12/16/2024 1:23 PM EDT [facility] POINT OF CARE TEST ENTER/EDIT OR DERABLES Final Result * (ABNORMAL) POCT glucose manually resulted (12/08/2024 2:33 PM EDT) Only the most recent of2 resultswithin the time period is included. Glucose Blood, POC 204(A) 60 - 200 mg/dL QC Media Lot # Comment:[id number] Lot# Expiration Date Comment:03/31/2025 Blood Capillary blood specimen / Unknown 12/08/2024 2:33 PM EDT Sean Roman MD POINT OF CARE TEST ENTER/ED IT ORDERABLES Final Result * (ABNORMAL) POCT HGB A1C (10/28/2024 3:42 PM EST) Hemoglobin A1C 6.8(A) 4.0 - 6.0 % Comment:random QC Media Lot # [id number] Lot# Expiration Date [id number] Blood 10/28/2024 3:42 PM EST Sean Roman MD POINT OF CARE TEST ENTER/ED IT ORDERABLES Edited Result - Final * Urinalysis with reflex microscopic (10/28/2024 3:10 PM EST) Color Urine Yellow [facility] Appearance Urine Clear [facility] PH 6.5 5.0 - 9.0 [facility] Glucose Urine UA Negative Negative mg/dL [facility] Urine Blood Negative Negative [facility] Specific [place] - Urine 1.015 1.005 - 1.025 [facility] Urine Protein Negative Neg-Trace mg/dL [facility] Urine Ketones Negative Negative mg/dL [facility] Nitrite Urine Negative Negative [facility] Leukocyte Esterase Urine Negative Negative [facility] Urine (Urine, Random) 10/28/2024 3:10 PM EST 10/28/2024 5:41 PM EST Narrative [facility] - 10/28/2024 6:00 PM EST [id number], Clean Catch us Sean Roman MD LAB URINE ORDERABLES Final Result Performing Organization Address [facility]/ZIP Co de Phone Number [facility] [address] [place] [phone] * Syphilis Screen (10/28/2024 3:02 PM EST) Syphilis Screen Nonreactive Nonreactive [facility] Blood 10/28/2024 3:02 PM EST 10/28/2024 5:34 PM EST us Sean Roman MD LAB BLOOD ORDERABLES Final Result Performing Organization Address [facility]/ZIP Co de Phone Number [facility] [address] [place] [phone] * HIV-1/2 Antigen and Antibodies, Fourth Generation, with Reflexes (10/28/2024 3:02 PM EST) HIV AB/AG Nonreactive Nonreactive [facility] Comment:HIV-1 p24 Ag and/or HIV-1/HIV-2 Ab not detected.A test result that is nonreactive does not exclude thepossibility of exposure to or infection with HIV-1 and/orHIV-2. Nonreactive results in this assay for individualswith prior exposure to HIV-1 and/or HIV-2 may be due toantigen and antibody levels that are below the limit ofdetection of this assay.[employer] HIV Ag/Ab Combo assay result andsupplemental assay results should be interpreted inconjunction with the patient's clinical presentation,history and other laboratory results. If the results areinconsistent with clinical evidence, additional testing issuggested to confirm the result. Blood Venous blood specimen / Unknown 10/28/2024 3:02 PM EST 10/28/2024 5:34 PM EST us Sean Roman MD LAB BLOOD ORDERABLES Final Result [facility] [address] [place] [phone] * Chlamydia/N. Gonorrhoeae RNA, TMA, Urogenitial (10/28/2024 3:00 PM EST) Pathologist [facility] CT PCR NOT DETECTED Not Detect. [facility] Comment:A not detected test result does not exclude the possibilityof infection because test results can be affected byimproper specimen collection, concurrent antibiotic therapy,or the number of organisms in the specimen which may bebelow the sensitivity of the test. As with many diagnostictests, results from the Xpert CT/NG assay should beinterpreted in conjunction with other laboratory andclinical data available to the clinician.Xpert CT/NG performance has not been evaluated in patientsless than 14 years of age. The assay should not be used forthe evaluationof suspected sexual abuse or for other medico-legalindications. Additional testing is recommended in anycircumstance when false positive or false negative resultscould lead to adverse medical, social or psychologicalconsequences. NG PCR NOT DETECTED Not Detect. [facility] Comment:A not detected test result does not exclude the possibilityof infection because test results can be affected byimproper specimen collection, concurrent antibiotic therapy,or the number of organisms in the specimen which may bebelow the sensitivity of the test. As with many diagnostictests, results from the Xpert CT/NG assay should beinterpreted in conjunction with other laboratory andclinical data available to the clinician.Xpert CT/NG performance has not been evaluated in patientsless than 14 years of age. The assay should not be used forthe evaluationof suspected sexual abuse or for other medico-legalindications. Additional testing is recommended in anycircumstance when false positive or false negative resultscould lead to adverse medical, social or psychologicalconsequences. Urine (Urine, Random) 10/28/2024 3:00 PM EST 10/28/2024 5:41 PM EST Narrative [facility] - 10/29/2024 5:26 AM EST Urine us Sean Roman MD LAB MICROBIOLOGY - GENERAL ORDERABLES Final Result [facility] [address] [place] [phone] * (ABNORMAL) LIPID PANEL, STANDARD (12/19/2021 9:40 AM EDT) Chol/HDLC Ratio 6.7(H) <5.0 (calc) [facility] ?? LDL-C is now calculated using the Nilsa ?? calculation, which is a validated novel method providing ?? better accuracy than the Friedewald equation in the ?? estimation of LDL-C. ?? Joseluis GUZMAN et al. NEEMA. 2013;310(19): 1826-6684 ?? (http://education.Azoi/faq/WQI962) Non-HDL Cholesterol 148(H) <130 mg/dL (calc) [facility] Comment: For patients with diabetes plus 1 major ASCVD risk ?? factor, treating to a non-HDL-C goal of <100 mg/dL ?? (LDL-C of <70 mg/dL) is considered a therapeutic ?? option. Triglycerides 249(H) <150 mg/dL [facility] Comment: ?? If a non-fasting specimen was collected, consider repeat triglyceride testing on a fasting specimen if clinically indicated. ?? Zachary et al. J. of Clin. Lipidol. 2015;9:129-169. ?? 12/19/2021 9:40 AM EDT us Sean Roman MD LAB BLOOD ORDERABLES Final Result [facility] [address] from Last 3 Months or Most Recently Relevant to Health Maintenance Insurance [employer] Care Teams Pediatric Physician Relationship Specialty Start Date End Date Sean Roman MD [address] [place] [address] PCP - General Internal Medicine 02/10/19 Karime Macario PharmD [address] [place] [address] Pharmacist Internal Medicine 12/16/24 Luna Palomo Plant ChiefEarly Childhood Assistant 12/23/23 Luna palomo Plant ChiefEarly Childhood Assistant 05/05/24
--- OUTSIDE RECORDS SUMMARY | 2025-01-07 08:21 | XMS_ITS | Encounter Summary ---
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 male. Chief Complaint Diabetic Eye Exam HPI 44 yo male presents for diabetic eye exam with no new visual complaints. He was diagnosed with Type2 diabetes after last eye exam one year ago and last A1c was 6.8 on 10/28/2024. He wears spectacles for distance only and amblyopia was suspected in the right eye at last exam. He denies all other ocular complaints. Last edited by Jacqueline Cochran, OD on 01/06/2025 11:06 AM. Current Outpatient Medications Medication Sig Dispense Refill albuterol 108 (90 Base) MCG/ACT inhaler Inhale 2 puffs every 4 (four) hours if needed for wheezing.18 g 0 Alcohol Swabs 70 % pads Use to test blood sugar 1 times daily 100 each 11 amLODIPine (Norvasc) 5 MG tablet TAKE ONE TABLET DAILY 90 tablet 1 atenolol (Tenormin) 25 MG tablet TAKE ONE TABLET BY MOUTH EVERY MORNING 30 tablet 11 Blood Glucose Monitoring Suppl (FreeStyle [place]arte Lite) w/Device kit Use to test blood sugar 1 times daily 1 kit 0 buprenorphine ER (Sublocade) 100 mg/0.5mL injection Inject 0.5 mL (1 each) under the skin every month to absorb continually. Inject 0.5 mL under the skin every month to absorb continually. 0.5 mL 5 buprenorphine-naloxone (Suboxone) 2-0.5 MG per sublingual film Place 1 Film under the tongue 2 times daily for 28 days. 56 Film 0 dextran 70-hypromellose (artificial tears) 0.1-0.3 % ophthalmic solution Administer 1 drop into theleft eye every 2 (two) hours. doxycycline (Vibra-Tabs) 100 MG tablet Take 1 tablet (100 mg) by mouth 2 times daily. Take with a full glass of water and do not lie down for at least 30 minutes after. 60 tablet 0 Dulaglutide (Trulicity) 0.75 MG/0.5ML solution auto-injector Inject 0.75 mg under the skin 1 (one) time per week. 2 mL 2 FLUoxetine (PROzac) 40 MG capsule Take 40 mg by mouth in the morning. FREESTYLE LITE test strip Use to test blood sugar 1 times daily 100 each 12 gabapentin (Neurontin) 300 MG capsule Take 1 capsule by mouth every 6 (six) hours during the day. hydroCHLOROthiazide (Microzide) 12.5 MG capsule TAKE ONE CAPSULE DAILY 90 capsule 1 hydrOXYzine HCl (Atarax) 50 MG tablet Take 50 mg by mouth at bedtime. Ketotifen Fumarate 0.035 % solution Administer 1 drop into affected eye(s) 2 times daily. Instill 1drop into the affected eye(s) twice daily every 8 to 12 hours (maximum: do not exceed 2 applications/day). 10 mL 0 Lancets misc Use to test blood sugar 1 times daily 100 each 0 metFORMIN (Glucophage) 500 MG tablet Take 1 tablet (500 mg) by mouth with breakfast and with evening meal. 60 tablet 11 naloxone (Narcan) 4 mg/0.1 mL nasal spray Administer 0.1 mL into affected nostril(s). OLANZapine (ZyPREXA) 15 MG tablet Take 1 tablet by mouth at bedtime. polyethylene glycol, PEG, 3350 (Glycolax) 17 GM/SCOOP powder STIR 17GM INTO 8 OUNCES OF WATER, OR JUICE, AND DRINK DAILY NEEDED / DIRECTED 510 g 2 prazosin (Minipress) 2 MG capsule TAKE 4 CAPSULES BY MOUTH AT BEDTIME No current facility-administered medications for this visit. History reviewed. No pertinent past medical history. History reviewed. No pertinent surgical history. No family history on file. Social History Socioeconomic History Marital status: Single Spouse name: Not on file Number of children: Not on file Years of education: Not on file Highest education level: Not on file Occupational History Not on file Tobacco Use Smoking status: Former Types: Cigarettes Smokeless tobacco: Never Tobacco comments: Vape 10 times a day Vaping Use Vaping status: Every Day Devices: Disposable Substance and Sexual Activity Alcohol use: Not on file Drug use: Yes Sexual activity: Not on file Other Topics Concern Not on file Social History Narrative Not on file Social Drivers of Health Food Insecurity: Low Risk (11/26/2023) Food Insecurity Within the past 12 months, you worried that your food would run out before you got money to buy more:: Never True Within the past 12 months,the food you bought just didn't last and you didn't have enough money to get more: : Never True Transportation Needs: Low Risk (11/26/2023) Transportation In the past 12 months, has lack of transportation kept you from medical appts, meetings, work or from getting things needed for daily living? : No Intimate Partner Violence: Not At Risk (12/09/2023) Received from [facility] Intimate Partner Violence Are you denied basic needs such as food, clothing, or medical care?: No In the past 12 months have you been in a relationship with a person who hurts, threatens, or tries to control you?: No Are you denied basic needs such as food, clothing, or medical care?: No In the past 12 months have you been in a relationship with a person who hurts, threatens, or tries to control you?: No Housing Stability: Low Risk (11/26/2023) Housing Stability What is your housing situation today?: I have housing Think about the place you live. Do you have problems with any of the following? : None of the above Allergies Allergen Reactions Penicillins Other and Unknown ROS Positive for: HENT (sleep apnea), Endocrine (Type 2 diabetes), Cardiovascular (hypertension, hypertriglyceridemia) Negative for: Constitutional, Gastrointestinal, Neurological, Skin, Genitourinary, Musculoskeletal,Eyes, Respiratory, Psychiatric, Allergic/Imm, Heme/Lymph Last edited by Jacqueline Cochran, OD on 01/06/2025 11:09 AM. Base Eye Exam Visual Acuity (Snellen - Linear) Right Left Dist cc 20/50 +2 20/25 Near cc 20/25 20/30 Correction: Glasses Very slow responses Tonometry ([facility] , 11:02 AM) Right Left Pressure 11 12 Pupils Pupils APD Right PERRL None Left PERRL None Visual Ellis (Counting fingers) Left Right Full Full Extraocular Movement Right Left Full, Ortho Full, Ortho Neuro/Psych Oriented x3: Yes Mood/Affect: Normal Dilation Both eyes: 1.0% Mydriacyl @ 11:02 AM Slit Lamp and Fundus Exam External Exam Right Left External Normal Normal Slit Lamp Exam Right Left Lids/Lashes Normal Normal Conjunctiva/Sclera White and quiet White and quiet Cornea Clear Clear Anterior Chamber Deep and quiet Deep and quiet Iris No NVI No NVI Lens Clear Clear Fundus Exam Right Left Vitreous Normal Normal Disc No NVD No NVD C/D Ratio Vertical 0.15 0.15 C/D Ratio Horizontal 0.15 0.15 Macula No CSME No CSME Vessels No NVE No NVE Periphery No holes, breaks, tears 360 No holes, breaks, tears 360 Refraction Wearing Rx Sphere Cylinder [place] Add Right -0.25 -0.75 180 +1.00 Left +0.25 -0.75 090 +1.00 Type: DVO Manifest Refraction Sphere Cylinder [place] Dist VA Add Near VA Right -0.50 -0.75 180 20/40 +1.00 20/25 Left +0.25 -0.75 090 20/25 +1.00 20/25 Cycloplegic Refraction Trial frame over spectacles: patient appreciates additional minus over right eye (OD) and near Add. Final Rx Sphere Cylinder [place] Dist VA Add Near VA Right -0.50 -0.75 180 20/40 +1.00 20/25 Left +0.25 -0.75 090 20/25 +1.00 20/25 Expiration Date: 01/06/2026 Assessment/plan: Diagnoses and all orders for this visit: Type 2 diabetes mellitus without ophthalmic manifestations ([facility]) Type 2 diabetes without diabetic retinopathy or diabetic macular edema. Patient education regardingimportance of annual eye exam as well as maintaining good control of blood glucose and other co-morbidities. Recommend follow up with PCP as indicated. Monitor at annual eye examination or sooner if any changes in vision occur. 2. Amblyopia suspect, right eye Suspicion of mild refractive amblyopia right eye (OD) in a patient normal internal and external ocular findings on dilated exam. Patient education regarding visual status and importance of spectacle wear to achieve best visual acuity. Monitor at annual eye exam. 3. Presbyopia Astigmatism with presbyopia in a patient with mild myopia right eye (OD) and mild hyperopia left eye (OS). Patient appreciates near correction with Add. Copy of updated Rx given for DVO/NVO or bifocal per patient preference. Monitor at annual exam or sooner if any changes in vision occur. Jacqueline Cochran, DONNY 01/06/2025, 11:30 AM documented in this encounter Plan of Treatment Upcoming Encounters Date Type Department Care Team (Late st Contact Info) Description 01/13/2025 10:30 AM EDT Clinical Support [address] [address] Jeremy Asif, MILI [address] [place] [address] 01/20/2025 1:00 PM EDT Medication Management [facility] MED & PEDS [address] [place] [address] Karime Macario PharmD [address] [place] [address] 02/08/2025 3:15 PM EDT Office Visit [facility] MED [facility] PED[facility] [address] [place] [address] Sean Roman MD [address] [place], [place] 02/10/2025 1:00 PM EDT Office Visit [facility] MEDICINE [address] [place] [address] Lubna Torres MD [address] [place] [address] documented as of this encounter Goals Goal Patient Goal Type Associated Problems Recent Progress Patient-Stated? Author Take your medication every day Lifestyle On track( 025 2:14 PM EDT) Jeremy Grissom RN documented as of this encounter Visit Diagnoses Diagnosis Type 2 diabetes mellitus without ophthalmic manifestations (CMS/[facility])- Primary Amblyopia suspect, right eye Presbyopia documented in this encounter Additional Health Concerns Assessment Noted Time PHQ-9 Depression Total Score: 10 025 3:50 PM EDT documented as of this encounter Care Teams Assembler Movement Relationship Specialty Start Date End Date Sean Roman MD [address] [place] [address] PCP - General Internal Medicine 02/10/19 Karime Macario PharmD [address] [place] [address] Pharmacist Internal Medicine 12/16/24 Luna Palomo Grab SetterHeel Caser 12/23/23 Luna palomo Grab SetterHeel Caser 05/05/24 documented as of this encounter
--- OUTSIDE RECORDS SUMMARY | 2025-01-07 08:21 | XMS_ITS | Encounter Summary ---
Author Organization [facility] Address [address] [facility] 7t [place] [address] Care Team Providers Care Window Glass Cutter Off Name Role Phone Sean Roman MD Primary Care Provider [phone] Karime Macario PharmD Unavailable [phone] Encounter Details Date Type Department Care Team (Latest Contact Info) Description 01/05/2025 Travel Social History Tobacco Use Types Packs/Day [...] Description 01/13/2025 10:30 AM EDT Clinical Support [facility] MEDICINE [address] [place] [address] Jeremy Asif RN [address] [place] [phone] 01/20/2025 1:00 PM EDT Medication Management [facility] MED & PEDS [address] [place] [address] Karime Macario, VinodD [address] [place] [address] 02/08/2025 3:15 PM EDT Office Visit [facility] MED & PEDS [address] [place] [address] Sean Roman MD [address] [place] [address] 02/10/2025 1:00 PM EDT Office Visit [facility] MEDICINE [address] [place] [address] Lubna Torres MD [address] [place] [address] documented as of this encounter Goals Goal [...] documented as of this encounter Care Teams Window Glass Cutter Off Relationship Specialty Start Date End Date Sean Roman MD [address] [place] [phone] PCP - General Internal Medicine 02/10/19 Karime Macario PharmD [address] [place] [address] Pharmacist Internal Medicine 12/16/24 Luna Palomo Deployment TechnicianDie Holder 12/23/23 Luna palomo Deployment TechnicianDie Holder 05/05/24 documented as of this encounter
[2025-01-07 14:44] LABS: Alanine Aminotransferase 66 U/L (0-40); Albumin Level 4.3 g/dL (3.5-5.0); Alkaline Phosphatase 124 U/L (39-117); Anion Gap 13 (12-20); Aspartate Amino Transferase 49 U/L (5-37); Bilirubin Total 0.5 mg/dL (0.0-1.0); Blood Urea Nitrogen 12 mg/dL (9-16); Calcium 9.3 mg/dL (8.4-10.2); Carbon Dioxide 28 mmol/L (22-29); Chloride 102 mmol/L (96-108); Cholesterol 131 mg/dL (<200); Estimated Glomerular Filt Rate > 60; Glucose Random 96 mg/dL (60-115); HDL Cholesterol 21 mg/dL (>40); LDL Cholesterol Calculated 37 mg/dL (<100); Potassium 3.7 mmol/L (3.3-5.1); Sodium 139 mmol/L (135-145); Total Protein 7.8 g/dL (6.5-8.0); Triglycerides 366 mg/dL (<150)
[2025-01-07 15:03] LABS: Creatinine Urine 240.82 mg/dL; Microalbum/Creatinine Ratio Ur 20.7 ug/mg cr (<30)
== END 2025-01-07 08:18 | disposition home or self-care (01) ==
LOC: HO.CHCLDS 08:17
PROVIDERS: Visit Provider Internal Medicine
DX: E11.65 Type 2 diabetes mellitus with hyperglycemia (principal)
CPT/HCPCS: 36415; 80053; 80061; 82043; 82570

== ENCOUNTER 2025-03-10 13:00 | Outpatient (REF) | payer MEDICAID, SELFPAY ==
--- OUTSIDE RECORDS SUMMARY | 2025-03-10 15:06 | XMS_ITS | Encounter Summary ---
Author Organization [facility] [employer] [facility] Address [address] [place] [address] Care Team Providers Care Ballet Dancer Name Role Phone Sean Roman MD Primary Care Provider [phone] Karime Macario PharmD Unavailable [phone] Reason for Visit * Reason Onset Date Comments PT1 06/16/2023 Encounter Details Date Type Department Care Team (Late st Contact Info) Description 06/16/2023 Telephone [facility] MEDICINE [address] [place] [address] Sean Roman MD [address] [place] [address] PT1 Social History Tobacco Use Types Packs/Day [...] PT1 Date: 06/26 Time: 10:15 am address: [address] [place] [address] specialty: [facility] # visits: n/a burglar alarm installer: no Wheelchair: no documented in this encounter Plan of Treatment Upcoming Encounters Date Type Department Care Team (Late st Contact Info) Description 04/07/2025 2:15 PM EDT Office Visit [facility] MEDICINE [address] [place] [address] Lubna Torres MD [address] [place] [address] 04/21/2025 1:00 PM EDT Medication Management [facility] MED & PEDS [address] [place] [address] Karime Macario, PharmD [address] [place] [address] documented as of this encounter Visit Diagnoses Not on filedocumented in this encounter Care Teams Ballet Dancer Relationship Specialty Start Date End Date Sean Roman MD [address] [place] [address] PCP - General Internal Medicine 02/10/19 Karime Macario, PharmD [address] [place] [address] Pharmacist Internal Medicine 12/16/24 Luna Palomo Vessel SpecialistMovers 12/23/23 Luna palomo Vessel SpecialistMovers 05/05/24 documented as of this encounter
[2025-03-10 16:33] LABS: Alanine Aminotransferase 57 U/L (0-40); Albumin Level 4.9 g/dL (3.5-5.0); Alkaline Phosphatase 108 U/L (39-117); Aspartate Amino Transferase 43 U/L (5-37); Bilirubin Direct 0.2 mg/dL (0.0-0.5); Bilirubin Total 0.6 mg/dL (0.0-1.0); Total Protein 8.2 g/dL (6.5-8.0)
[2025-03-11 08:15] LABS: Hepatitis A Antibody IgG REACTIVE (Nonreactive); ~Hepatitis A Antibody IgG 8.01 S/CO (0.00-0.99)
[2025-03-11 08:28] LABS: HBsAGNum1 0.36 S/CO (0.00-0.99); Hepatitis B Core Antibody Nonreactive (Nonreactive); Hepatitis B Surface Antigen Negative (Negative); ~Hepatitis B Surface Antibody REACTIVE (Nonreactive)
== END 2025-03-10 13:01 | disposition home or self-care (01) ==
LOC: HO.HHCL 13:00
PROVIDERS: Visit Provider Family Medicine
DX: F11.20 Opioid dependence, uncomplicated (principal)
CPT/HCPCS: 36415; 80076; 86704; 86706; 86708; 87340

== ENCOUNTER 2025-04-28 13:05 | Outpatient (REF) | payer MEDICAID, SELFPAY ==
--- OUTSIDE RECORDS SUMMARY | 2025-04-28 13:17 | XMS_ITS | Encounter Summary ---
Author Organization [employer] Address [address] [place] [address] Care Team Providers Care System Analyst Name Role Phone eSan Roman MD Primary Care Provider [phone] Karime Macario PharmD Unavailable [phone] Reason for Visit * Reason Onset Date Comments PT1 06/16/2023 Encounter Details Date Type Department Care Team (Late st Contact Info) Description 06/16/2023 Telephone [facility] MEDICINE [address] [place] [address] Sean Roman MD [address] [place] [address] PT1 Social History Tobacco Use Types Packs/Day [...] Date: 06/26 Time: 10:15 am address: [address] [place] [address] specialty: [facility] # visits: n/a poiser: no Wheelchair: no documented in this encounter Plan of Treatment Upcoming Encounters Date Type Department Care Team (Late st Contact Info) Description 05/05/2025 2:30 PM EDT Office Visit [facility] MEDICINE [address] [place] [address] Lubna Torres MD [address] [place] [address] 06/02/2025 3:00 PM EDT Office Visit [facility] MEDICINE [address] [place] [address] Lubna Torres MD [address] [place] [address] 08/11/2025 1:00 PM EST Medication Management [facility] MED & PEDS [address] [place] [address] Karime Macario PharmD [address] [place] [address] documented as of this encounter Visit Diagnoses Not on filedocumented in this encounter Care Teams System Analyst Relationship Specialty Start Date End Date Sean Roman MD [address] [place] [address] PCP - General Internal Medicine 02/10/19 Karime Macario, PharmD [address] [place] [address] Pharmacist Internal Medicine 12/16/24 Luna Palomo Machinist MechanicMaintenance Painter Apprentice 12/23/23 Luna palomo Machinist MechanicMaintenance Painter Apprentice 05/05/24 documented as of this encounter
--- OUTSIDE RECORDS SUMMARY | 2025-04-28 13:17 | XMS_ITS | Clinical Summary ---
Author Organization [facility] Address [address] [facility] [address] [place] [address] Phone Care Team Providers Care Podiatric Physician Name Role Phone Sean Roman MD Primary Care Pr ovider Allergies Active Allergy Reactions Criticality Noted Date Comments Penicillins Unknown Medium 12/09/2023 Social History Tobacco Use Types Packs/Day Years Used Date Smoking Tobacco: Never Assessed Education Answer Date Recorded Are you interested in more education? Not on saurabh e 12/10/2023 Are you concerned about learning? Not on file 12/10/2023 No 12/10/2023 No 12/10/2023 Digital Access Answer Date Recorded No 12/10/2023 No 12/10/2023 Reliable internet access at home? Not on file 12/10/2023 Device with a working camera? Not on file Intimate Partner Violence Answer Date R ecorded Are you denied basic needs s uch as food, clothing, or medical care? No 12/09/2023 In the past 12 months have y ou been in a relationship with a person who hurts, threatens, or tries to control you? No 12/09/2023 Are you denied basic needs s uch as food, clothing, or medical care? No 12/09/2023 In the past 12 months have y ou been in a relationship with a person who hurts, threatens, or tries to control you? No 12/09/2023 Sex and Gender Information Value Date Recorded Sex Assigned at Male 12/09/2023 11:36 PM EDT Legal Sex Male 10:19 PM EDT Gender Identity Male 12/09/2023 11:36 PM EDT Sexual Orientation Straight 12/09/2023 11 :36 PM EDT Last Filed Vital Signs Vital Sign Reading Time Taken Comments Blood Pressure 130/79 12/10/2023 3:02 AM EDT Pulse 94 12/10/2023 3:02 AM EDT Temperature 37 C (98.6 F) 12/10/2023 3:02 AM EDT Respiratory Rate 16 12/10/2023 3:02 AM EDT Oxygen Saturation 94% 12/10/2023 3:02 AM EDT Inhaled Oxygen Concentration - - Weight 113.4 kg (250 lb) 12/09/2023 10:51 PM EDT Height 177.8 cm (5' 10 ) 12/09/2023 10:51 PM EDT Body Mass Index 35.87 12/09/2023 10:51 PM EDT Plan of Treatment Health Maintenance Due Date Last Done Comments LIPID PANEL 1980 DEPRESSION SCREENING 1992 SMOKING Hx and SMOKELESS TOBACCO SCREENING 1993 HEPATITIS C SCREENING 1998 HIV ONE-TIME SCREENING (18-6 5 YEARS) 1998 COVID-19 VACCINE (2023-2 5 season) 2024 SCREENING FOR DIABETES 12/09/2026 12/10/2023 Adult Td,Tdap Booster 12/25/2032 12/25/2022 , 12/10/2021, 11/03/2018 HEPATITIS A VACCINES Aged Out No long er eligible based on patient's age to complete this topic HIB VACCINES Aged Out No longer eligi ble based on patient's age to complete this topic MENINGOCOCCAL VACCINES (ACWY) Aged Out No longer eligible based on patient's age to complete this topic MENINGOCOCCAL VACCINES (B) Aged Out N o longer eligible based on patient's age to complete this topic PNEUMOCOCCAL VACCINES (0-49 years) Aged Out No longer eligible b ased on patient's age to complete this topic Medical Devices Not on file Insurance [facility] C3 ACO C3 ACO C3 ACO C3 [place] [address] [place] [address] C3 ACO [facility] C3 ACO Care Teams Podiatric Physician Relationship Specialty Start Date End Date Sean Roman MD PCP - General Internal Medicine 12/09/23 Additional Source Comments The information contained in this document represents components of the legal health record. It is not the complete legal health record.[facility]
[2025-04-28 14:53] LABS: Cholesterol 150 mg/dL (<200); HDL Cholesterol 21 mg/dL (>40); Triglycerides 248 mg/dL (<150)
== END 2025-04-28 13:06 | disposition home or self-care (01) ==
LOC: HO.CHCLDS 13:05
PROVIDERS: Visit Provider Internal Medicine
DX: E78.1 Pure hyperglyceridemia (principal)
CPT/HCPCS: 36415; 80061